=== PATIENT | female | born 1945 | race Caucasian/White ===

== ENCOUNTER 2022-05-25 18:27 | Inpatient (IN) ==
[2022-05-25] MEDS ORDERED: ONDANSETRON 4 MG/2 ML VIAL IV STA (19:26)
[2022-05-25] MEDS ORDERED: ALBUTEROL/IPRATROPIUM 3 ML NEB RESP TX STA (19:26)
[2022-05-25] MEDS ORDERED: methylPREDNISolone SOD SUC 125 MG/2 ML VIAL IV STA (19:26)
[2022-05-25] MEDS ORDERED: ALBUTEROL NEB SOLN 5 MG/ML 20 ML/BOTTLE CONT NEB SCH (19:30)
[2022-05-25] MEDS ORDERED: ALBUTEROL 2.5 MG/3 ML NEB RESP TX ONE (19:39)
[2022-05-25 20:01] LABS: Basophils # 0.1 10*3/uL (0.0-0.2); Basophils % 0.3 % (0.0-0.8); Eosinophils % 0.3 % (0.00-10.9); Hematocrit 27.2 VOL% (35.7-47.0); Hemoglobin 7.9 GM/DL (12.0-16.0); Immature Granulocytes % 0.3 %; Immature Granulocytes Absolute 0.04 #; Lymphocytes % 6.5 % (21.3-54.2); Mean Corpuscular Volume 80.5 FL (87-102); Mean Platelet Volume 9.7 FL (9.6-12.0); Monocytes % 6.5 % (1.7-12.7); Neutrophils % 86.1 % (38.7-73.9); Platelet Count 341 T/CUMM (130-400); Red Blood Count 3.38 MC/CUMM (3.8-5.5); Red Cell Distribution Width 14.7 % (9.3-17.3); White Blood Count 15.6 T/CUMM (4-12)
[2022-05-25 20:07] LABS: Arterial Base Excess iSTAT 6 MMOL/L (-2.5-2.5); Arterial Bicarbonate iSTAT 32.2 MMOL/L (20-26); Arterial O2 Saturation iSTAT 91 % (95-100); Arterial PCO2 iSTAT 54 MM HG (35-48); Arterial PO2 iSTAT 63 MM HG (80-95); Arterial Total CO2 iSTAT 34 MMO/L (23-27)
[2022-05-25 20:14] LABS: Albumin 3.5 G/DL (3.4-5.0); Bilirubin,Total 0.4 MG/DL (0.20-1.00); Calcium 9.3 MG/DL (8.5-10.1); Osmolality,Calculated 274.7 MOS/KG (273-304); Potassium 3.8 MMOL/L (3.5-5.1); Total Protein 6.5 G/DL (6.4-8.2)
[2022-05-25] MEDS ORDERED: MORPHINE 2 MG/1 ML SYRINGE IV PRN (22:20)
[2022-05-25] MEDS ORDERED: ONDANSETRON 4 MG/2 ML VIAL IV PRN (22:20)
[2022-05-25] MEDS: DOCUSATE SODIUM 100 MG CAPSULE PO SCH (22:40)
[2022-05-25] MEDS: SODIUM CHLORIDE 0.9% 1,000 ML IV SCH (22:42)
[2022-05-26] MEDS: ALBUTEROL/IPRATROPIUM 3 ML NEB RESP TX SCH ×7 (00:27→23:48)
[2022-05-26 05:16] LABS: Basophils % 0.1 % (0.0-0.8); Hemoglobin 7.4 GM/DL (12.0-16.0); Immature Granulocytes % 0.6 %; Immature Granulocytes Absolute 0.11 #; Lymphocytes # 0.2 10*3/uL (1.4-4.0); Lymphocytes % 0.8 % (21.3-54.2); Mean Corpuscular HGB Conc 28.5 GM/DL (32-36); Mean Corpuscular Volume 80.5 FL (87-102); Mean Platelet Volume 9.8 FL (9.6-12.0); Monocytes # 0.2 10*3/uL (0.11-0.8); Monocytes % 0.8 % (1.7-12.7); Neutrophils % 97.7 % (38.7-73.9); Platelet Count 307 T/CUMM (130-400); Red Blood Count 3.23 MC/CUMM (3.8-5.5); Red Cell Distribution Width 14.9 % (9.3-17.3); White Blood Count 18.2 T/CUMM (4-12)
[2022-05-26] MEDS: methylPREDNISolone SOD SUC 40 MG/1 ML VIAL IV SCH ×3 (05:23→20:07)
[2022-05-26 05:42] LABS: Alanine Aminotransferase 26 U/L (13-56); Albumin 3.2 G/DL (3.4-5.0); Alkaline Phosphatase 92 U/L (45-117); Aspartate Amino Transferase 16 U/L (0-37); Bilirubin,Total < 0.39 MG/DL (0.20-1.00); Blood Urea Nitrogen 14 MG/DL (7-18); Calcium 9.2 MG/DL (8.5-10.1); Carbon Dioxide 32 MMOL/L (21-32); Chloride 104 MMOL/L (98-107); Glucose 238 MG/DL (74-106); Osmolality,Calculated 291.1 MOS/KG (273-304); Sodium 142 MMOL/L (136-145); Total Protein 6.4 G/DL (6.4-8.2)
[2022-05-26 05:49] LABS: Total Cells Counted 100
[2022-05-26 05:50] LABS: Platelet Estimate Increased
[2022-05-26] MEDS ORDERED: ENOXAPARIN 40 MG/0.4 ML SYRINGE SUBCUT SCH (09:00)
[2022-05-26] MEDS: PANTOPRAZOLE 40 MG TABLET PO SCH (09:09)
[2022-05-26] MEDS: DOCUSATE SODIUM 100 MG CAPSULE PO SCH ×2 (09:09→20:04)
[2022-05-26] MEDS: SODIUM CHLORIDE 0.9% 1,000 ML IV SCH (12:25)
[2022-05-26] MEDS ORDERED: SODIUM CHLORIDE 0.9% 1,000 ML IV PRN (16:39)
[2022-05-26] MEDS: INSULIN REGULAR 100 UNIT/ML SUBCUT SCH (17:00)
[2022-05-26] MEDS: SERTRALINE 25 MG TABLET PO SCH (17:10)
[2022-05-26] MEDS: FAMOTIDINE 20 MG TABLET PO SCH (17:10)
[2022-05-26] MEDS: MONTELUKAST 10 MG TABLET PO SCH (17:10)
[2022-05-26] MEDS: NYSTATIN 500,000 UNIT/5 ML UDCUP SWISH/SWAL SCH ×2 (17:10→20:04)
[2022-05-26] MEDS: AZITHROMYCIN INJ 500 MG in SODIUM CHLORIDE 0.9% 250 ML IV SCH (17:10)
[2022-05-26] MEDS ORDERED: FUROSEMIDE 20 MG/2 ML VIAL IV ONE (19:22)
[2022-05-26] MEDS: BUDESONIDE 0.25 MG/2 ML NEB RESP TX SCH (19:40)
[2022-05-26] MEDS: ALPRAZolam 0.25 MG TABLET PO SCH (20:04)
[2022-05-26] MEDS ORDERED: APIXABAN 2.5 MG TABLET PO SCH (21:00)
[2022-05-26] MEDS: ACETAMINOPHEN 325 MG TABLET PO PRN (22:30)
[2022-05-27] MEDS: SODIUM CHLORIDE 0.9% 1,000 ML IV SCH ×3 (01:04→15:19)
[2022-05-27] MEDS: ALBUTEROL/IPRATROPIUM 3 ML NEB RESP TX SCH ×6 (04:00→23:00)
[2022-05-27 05:22] LABS: Basophils % 0.1 % (0.0-0.8); Hematocrit 32.5 VOL% (35.7-47.0); Hemoglobin 9.8 GM/DL (12.0-16.0); Immature Granulocytes % 0.8 %; Immature Granulocytes Absolute 0.15 #; Lymphocytes # 0.7 10*3/uL (1.4-4.0); Lymphocytes % 3.6 % (21.3-54.2); Mean Corpuscular HGB Conc 30.2 GM/DL (32-36); Mean Corpuscular Volume 80.6 FL (87-102); Mean Platelet Volume 9.7 FL (9.6-12.0); Monocytes # 1.1 10*3/uL (0.11-0.8); Monocytes % 5.7 % (1.7-12.7); Neutrophils % 89.8 % (38.7-73.9); Platelet Count 275 T/CUMM (130-400); Red Blood Count 4.03 MC/CUMM (3.8-5.5); Red Cell Distribution Width 15.5 % (9.3-17.3); White Blood Count 19.1 T/CUMM (4-12)
[2022-05-27 05:41] LABS: Calcium 9.2 MG/DL (8.5-10.1); Osmolality,Calculated 282.3 MOS/KG (273-304); Potassium 4.1 MMOL/L (3.5-5.1)
[2022-05-27] MEDS: methylPREDNISolone SOD SUC 40 MG/1 ML VIAL IV SCH ×3 (05:46→20:21)
[2022-05-27 05:51] LABS: Hypochromia Slight; Lymphocytes 3 % (20-55); Microcytosis 1+; Total Cells Counted 100
[2022-05-27 05:52] LABS: Ovalocytes Few; Platelet Estimate Normal
[2022-05-27] MEDS: INSULIN REGULAR 100 UNIT/ML SUBCUT SCH ×2 (07:33→16:26)
[2022-05-27] MEDS: BUDESONIDE 0.25 MG/2 ML NEB RESP TX SCH ×2 (07:55→19:00)
[2022-05-27] MEDS: ASPIRIN EC 81 MG TABLET PO SCH (09:21)
[2022-05-27] MEDS: ALPRAZolam 0.25 MG TABLET PO SCH ×3 (09:21→20:21)
[2022-05-27] MEDS: PANTOPRAZOLE 40 MG TABLET PO SCH (09:21)
[2022-05-27] MEDS: DOCUSATE SODIUM 100 MG CAPSULE PO SCH ×2 (09:21→20:21)
[2022-05-27] MEDS: SERTRALINE 25 MG TABLET PO SCH (09:21)
[2022-05-27] MEDS: MONTELUKAST 10 MG TABLET PO SCH (09:22)
[2022-05-27] MEDS: NYSTATIN 500,000 UNIT/5 ML UDCUP SWISH/SWAL SCH ×4 (09:22→20:23)
[2022-05-27] MEDS: FAMOTIDINE 20 MG TABLET PO SCH (09:22)
[2022-05-27] MEDS: ACETAMINOPHEN 325 MG TABLET PO PRN ×2 (09:27→17:26)
[2022-05-27] MEDS: AZITHROMYCIN INJ 500 MG in SODIUM CHLORIDE 0.9% 250 ML IV SCH (17:17)
[2022-05-28] MEDS: ALBUTEROL/IPRATROPIUM 3 ML NEB RESP TX SCH ×6 (02:28→23:35)
[2022-05-28] MEDS: methylPREDNISolone SOD SUC 40 MG/1 ML VIAL IV SCH ×3 (05:45→21:12)
[2022-05-28] MEDS: SODIUM CHLORIDE 0.9% 1,000 ML IV SCH ×2 (06:50→21:49)
[2022-05-28] MEDS: BUDESONIDE 0.25 MG/2 ML NEB RESP TX SCH ×2 (07:34→19:05)
[2022-05-28] MEDS: INSULIN REGULAR 100 UNIT/ML SUBCUT SCH ×2 (07:55→15:52)
[2022-05-28] MEDS: MONTELUKAST 10 MG TABLET PO SCH (08:38)
[2022-05-28] MEDS: PANTOPRAZOLE 40 MG TABLET PO SCH (08:38)
[2022-05-28] MEDS: ALPRAZolam 0.25 MG TABLET PO SCH ×3 (08:38→21:11)
[2022-05-28] MEDS: DOCUSATE SODIUM 100 MG/10 ML UDCUP PO SCH (08:38)
[2022-05-28] MEDS: ASPIRIN EC 81 MG TABLET PO SCH (08:38)
[2022-05-28] MEDS: SERTRALINE 25 MG TABLET PO SCH (08:38)
[2022-05-28] MEDS: FAMOTIDINE 20 MG TABLET PO SCH (08:38)
[2022-05-28] MEDS: DOCUSATE SODIUM 100 MG CAPSULE PO SCH ×2 (08:38→21:11)
[2022-05-28] MEDS: NYSTATIN 500,000 UNIT/5 ML UDCUP SWISH/SWAL SCH ×4 (08:39→21:11)
[2022-05-28] MEDS: AZITHROMYCIN INJ 500 MG in SODIUM CHLORIDE 0.9% 250 ML IV SCH (17:38)
[2022-05-29] MEDS: ACETAMINOPHEN 325 MG TABLET PO PRN (02:33)
[2022-05-29] MEDS: ALBUTEROL/IPRATROPIUM 3 ML NEB RESP TX SCH ×5 (03:00→20:06)
[2022-05-29] MEDS: methylPREDNISolone SOD SUC 40 MG/1 ML VIAL IV SCH ×3 (04:58→20:41)
[2022-05-29 07:10] LABS: Calcium 8.9 MG/DL (8.5-10.1); Osmolality,Calculated 281.3 MOS/KG (273-304); Potassium 3.8 MMOL/L (3.5-5.1)
[2022-05-29 07:18] LABS: Basophils % 0.1 % (0.0-0.8); Immature Granulocytes % 0.9 %; Immature Granulocytes Absolute 0.19 #; Lymphocytes # 0.8 10*3/uL (1.4-4.0); Lymphocytes % 3.7 % (21.3-54.2); Mean Corpuscular HGB Conc 29.7 GM/DL (32-36); Mean Corpuscular Volume 80.9 FL (87-102); Mean Platelet Volume 10.2 FL (9.6-12.0); Monocytes # 1.5 10*3/uL (0.11-0.8); Monocytes % 6.8 % (1.7-12.7); Neutrophils % 88.5 % (38.7-73.9); Platelet Count 292 T/CUMM (130-400); Red Blood Count 4.45 MC/CUMM (3.8-5.5); White Blood Count 21.3 T/CUMM (4-12)
[2022-05-29 07:19] LABS: Hemoglobin 10.7 GM/DL (12.0-16.0)
[2022-05-29] MEDS: BUDESONIDE 0.25 MG/2 ML NEB RESP TX SCH ×2 (07:20→20:06)
[2022-05-29 07:21] LABS: Lymphocytes 2 % (20-55); Platelet Estimate Normal; Total Cells Counted 100
[2022-05-29] MEDS: ALPRAZolam 0.25 MG TABLET PO SCH ×3 (08:11→20:35)
[2022-05-29] MEDS: MONTELUKAST 10 MG TABLET PO SCH (08:11)
[2022-05-29] MEDS: ASPIRIN EC 81 MG TABLET PO SCH (08:11)
[2022-05-29] MEDS: FAMOTIDINE 20 MG TABLET PO SCH (08:11)
[2022-05-29] MEDS: NYSTATIN 500,000 UNIT/5 ML UDCUP SWISH/SWAL SCH ×4 (08:12→20:35)
[2022-05-29] MEDS: PANTOPRAZOLE 40 MG TABLET PO SCH (08:12)
[2022-05-29] MEDS: SERTRALINE 25 MG TABLET PO SCH (08:12)
[2022-05-29] MEDS: DOCUSATE SODIUM 100 MG CAPSULE PO SCH ×2 (08:12→20:35)
[2022-05-29] MEDS: INSULIN REGULAR 100 UNIT/ML SUBCUT SCH ×2 (09:48→16:07)
[2022-05-29] MEDS: SODIUM CHLORIDE 0.9% 1,000 ML IV SCH (13:11)
[2022-05-29] MEDS: AZITHROMYCIN INJ 500 MG in SODIUM CHLORIDE 0.9% 250 ML IV SCH (17:44)
[2022-05-30] MEDS: ALBUTEROL/IPRATROPIUM 3 ML NEB RESP TX SCH ×7 (00:30→23:55)
[2022-05-30] MEDS: methylPREDNISolone SOD SUC 40 MG/1 ML VIAL IV SCH ×3 (05:00→20:48)
[2022-05-30] MEDS: SODIUM CHLORIDE 0.9% 1,000 ML IV SCH (05:09)
[2022-05-30] MEDS: ALPRAZolam 0.25 MG TABLET PO SCH ×3 (05:30→20:40)
[2022-05-30] MEDS: BUDESONIDE 0.25 MG/2 ML NEB RESP TX SCH ×2 (07:04→19:53)
[2022-05-30] MEDS: INSULIN REGULAR 100 UNIT/ML SUBCUT SCH ×2 (07:44→15:53)
[2022-05-30] MEDS: ASPIRIN EC 81 MG TABLET PO SCH (09:11)
[2022-05-30] MEDS: FAMOTIDINE 20 MG TABLET PO SCH (09:11)
[2022-05-30] MEDS: DOCUSATE SODIUM 100 MG CAPSULE PO SCH ×2 (09:11→20:40)
[2022-05-30] MEDS: SERTRALINE 25 MG TABLET PO SCH (09:11)
[2022-05-30] MEDS: NYSTATIN 500,000 UNIT/5 ML UDCUP SWISH/SWAL SCH ×4 (09:11→20:40)
[2022-05-30] MEDS: PANTOPRAZOLE 40 MG TABLET PO SCH (09:11)
[2022-05-30] MEDS: DOCUSATE SODIUM 100 MG/10 ML UDCUP PO SCH (09:11)
[2022-05-30] MEDS: MONTELUKAST 10 MG TABLET PO SCH (09:11)
[2022-05-30] MEDS: AZITHROMYCIN INJ 500 MG in SODIUM CHLORIDE 0.9% 250 ML IV SCH (17:39)
[2022-05-31] MEDS: ALBUTEROL/IPRATROPIUM 3 ML NEB RESP TX SCH ×6 (03:57→23:41)
[2022-05-31] MEDS: ALPRAZolam 0.25 MG TABLET PO SCH ×3 (05:30→20:31)
[2022-05-31] MEDS: methylPREDNISolone SOD SUC 40 MG/1 ML VIAL IV SCH ×3 (05:30→20:34)
[2022-05-31 06:41] LABS: Osmolality,Calculated 278.3 MOS/KG (273-304)
[2022-05-31] MEDS: INSULIN REGULAR 100 UNIT/ML SUBCUT SCH ×2 (07:13→16:54)
[2022-05-31 08:34] LABS: Basophils % 0.1 % (0.0-0.8); Eosinophils # 0.1 10*3/uL (0.0-0.87); Eosinophils % 0.4 % (0.00-10.9); Hematocrit 37.6 VOL% (35.7-47.0); Hemoglobin 11.1 GM/DL (12.0-16.0); Immature Granulocytes % 0.8 %; Immature Granulocytes Absolute 0.17 #; Lymphocytes # 0.5 10*3/uL (1.4-4.0); Lymphocytes % 2.1 % (21.3-54.2); Mean Corpuscular HGB Conc 29.5 GM/DL (32-36); Mean Corpuscular Volume 81.7 FL (87-102); Mean Platelet Volume 10.3 FL (9.6-12.0); Monocytes # 1.7 10*3/uL (0.11-0.8); Monocytes % 7.4 % (1.7-12.7); Neutrophils % 89.2 % (38.7-73.9); Platelet Count 310 T/CUMM (130-400); Red Cell Distribution Width 17.5 % (9.3-17.3); White Blood Count 22.4 T/CUMM (4-12)
[2022-05-31 08:37] LABS: Lymphocytes 2 % (20-55); Platelet Estimate Adequate; Total Cells Counted 100
[2022-05-31 08:38] LABS: Hypochromia Slight; Microcytosis Slight
[2022-05-31] MEDS: BUDESONIDE 0.25 MG/2 ML NEB RESP TX SCH ×2 (08:40→19:00)
[2022-05-31] MEDS: SERTRALINE 25 MG TABLET PO SCH (08:52)
[2022-05-31] MEDS: MONTELUKAST 10 MG TABLET PO SCH (08:52)
[2022-05-31] MEDS: DOCUSATE SODIUM 100 MG CAPSULE PO SCH ×2 (08:52→20:31)
[2022-05-31] MEDS: PANTOPRAZOLE 40 MG TABLET PO SCH (08:52)
[2022-05-31] MEDS: ASPIRIN EC 81 MG TABLET PO SCH (08:52)
[2022-05-31] MEDS: NYSTATIN 500,000 UNIT/5 ML UDCUP SWISH/SWAL SCH ×4 (08:52→20:31)
[2022-05-31] MEDS: FAMOTIDINE 20 MG TABLET PO SCH (08:52)
[2022-05-31] MEDS: AZITHROMYCIN INJ 500 MG in SODIUM CHLORIDE 0.9% 250 ML IV SCH (17:35)
[2022-05-31] MEDS: ACETAMINOPHEN 325 MG TABLET PO PRN (17:38)
[2022-06-01] MEDS: ALBUTEROL/IPRATROPIUM 3 ML NEB RESP TX SCH ×6 (03:40→23:00)
[2022-06-01] MEDS: ALPRAZolam 0.25 MG TABLET PO SCH ×3 (05:05→21:49)
[2022-06-01] MEDS: methylPREDNISolone SOD SUC 40 MG/1 ML VIAL IV SCH ×3 (05:05→21:51)
[2022-06-01 05:45] LABS: Calcium 9.4 MG/DL (8.5-10.1); Osmolality,Calculated 283.1 MOS/KG (273-304); Potassium 4.6 MMOL/L (3.5-5.1)
[2022-06-01 06:00] LABS: Basophils % 0.1 % (0.0-0.8); Eosinophils % 0.1 % (0.00-10.9); Hemoglobin 10.4 GM/DL (12.0-16.0); Immature Granulocytes % 0.6 %; Immature Granulocytes Absolute 0.09 #; Lymphocytes # 0.7 10*3/uL (1.4-4.0); Lymphocytes % 4.8 % (21.3-54.2); Mean Corpuscular HGB Conc 29.7 GM/DL (32-36); Mean Corpuscular Volume 82.9 FL (87-102); Mean Platelet Volume 10.6 FL (9.6-12.0); Monocytes # 1.2 10*3/uL (0.11-0.8); Monocytes % 7.5 % (1.7-12.7); Neutrophils % 86.9 % (38.7-73.9); Platelet Count 282 T/CUMM (130-400); Red Blood Count 4.22 MC/CUMM (3.8-5.5); Red Cell Distribution Width 17.6 % (9.3-17.3); White Blood Count 15.5 T/CUMM (4-12)
[2022-06-01 06:09] LABS: Eosinophils 1 % (0-10); Lymphocytes 3 % (20-55); Total Cells Counted 100
[2022-06-01 06:10] LABS: Hypochromia Slight; Microcytosis 1+; Ovalocytes Few
[2022-06-01] MEDS: BUDESONIDE 0.25 MG/2 ML NEB RESP TX SCH ×2 (07:03→19:11)
[2022-06-01] MEDS: SERTRALINE 25 MG TABLET PO SCH (09:23)
[2022-06-01] MEDS: PANTOPRAZOLE 40 MG TABLET PO SCH (09:23)
[2022-06-01] MEDS: ASPIRIN EC 81 MG TABLET PO SCH (09:23)
[2022-06-01] MEDS: FAMOTIDINE 20 MG TABLET PO SCH (09:24)
[2022-06-01] MEDS: NYSTATIN 500,000 UNIT/5 ML UDCUP SWISH/SWAL SCH ×4 (09:24→21:49)
[2022-06-01] MEDS: MONTELUKAST 10 MG TABLET PO SCH (09:24)
[2022-06-01] MEDS: DOCUSATE SODIUM 100 MG CAPSULE PO SCH ×2 (09:24→21:49)
[2022-06-01] MEDS: INSULIN REGULAR 100 UNIT/ML SUBCUT SCH ×2 (09:26→16:53)
[2022-06-01] MEDS: DOCUSATE SODIUM 100 MG/10 ML UDCUP PO SCH (09:26)
[2022-06-02] MEDS: ALBUTEROL/IPRATROPIUM 3 ML NEB RESP TX SCH ×6 (03:06→23:35)
[2022-06-02 05:12] LABS: Calcium 9.2 MG/DL (8.5-10.1); Osmolality,Calculated 282.3 MOS/KG (273-304); Potassium 4.1 MMOL/L (3.5-5.1)
[2022-06-02 05:15] LABS: Basophils % 0.1 % (0.0-0.8); Eosinophils % 0.1 % (0.00-10.9); Hemoglobin 9.9 GM/DL (12.0-16.0); Immature Granulocytes % 0.7 %; Lymphocytes # 0.5 10*3/uL (1.4-4.0); Lymphocytes % 3.3 % (21.3-54.2); Mean Corpuscular HGB Conc 28.9 GM/DL (32-36); Mean Corpuscular Volume 83.6 FL (87-102); Mean Platelet Volume 10.4 FL (9.6-12.0); Monocytes # 0.8 10*3/uL (0.11-0.8); Monocytes % 5.4 % (1.7-12.7); Neutrophils % 90.4 % (38.7-73.9); Platelet Count 263 T/CUMM (130-400); Red Blood Count 4.09 MC/CUMM (3.8-5.5); Red Cell Distribution Width 18.1 % (9.3-17.3); White Blood Count 15.1 T/CUMM (4-12)
[2022-06-02 05:17] LABS: Hematocrit 34.2 VOL% (35.7-47.0)
[2022-06-02] MEDS: ALPRAZolam 0.25 MG TABLET PO SCH ×3 (05:17→20:59)
[2022-06-02] MEDS: methylPREDNISolone SOD SUC 40 MG/1 ML VIAL IV SCH ×3 (05:17→21:04)
[2022-06-02 05:40] LABS: Hypochromia Slight; Lymphocytes 6 % (20-55); Microcytosis Slight; Platelet Estimate Adequate; Total Cells Counted 100
[2022-06-02] MEDS: BUDESONIDE 0.25 MG/2 ML NEB RESP TX SCH ×2 (07:30→19:15)
[2022-06-02] MEDS: INSULIN REGULAR 100 UNIT/ML SUBCUT SCH ×2 (08:58→16:47)
[2022-06-02] MEDS: FAMOTIDINE 20 MG TABLET PO SCH (09:52)
[2022-06-02] MEDS: ASPIRIN EC 81 MG TABLET PO SCH (09:52)
[2022-06-02] MEDS: SERTRALINE 25 MG TABLET PO SCH (09:52)
[2022-06-02] MEDS: MONTELUKAST 10 MG TABLET PO SCH (09:53)
[2022-06-02] MEDS: DOCUSATE SODIUM 100 MG CAPSULE PO SCH ×2 (09:53→20:59)
[2022-06-02] MEDS: NYSTATIN 500,000 UNIT/5 ML UDCUP SWISH/SWAL SCH ×4 (09:53→20:59)
[2022-06-02] MEDS: PANTOPRAZOLE 40 MG TABLET PO SCH (09:53)
[2022-06-02] MEDS: FERROUS SULFATE 325 MG TABLET PO SCH (20:59)
[2022-06-03] MEDS: ALBUTEROL/IPRATROPIUM 3 ML NEB RESP TX SCH ×4 (03:55→14:11)
[2022-06-03] MEDS: ALPRAZolam 0.25 MG TABLET PO SCH ×2 (06:06→13:26)
[2022-06-03] MEDS: methylPREDNISolone SOD SUC 40 MG/1 ML VIAL IV SCH ×2 (06:06→13:26)
[2022-06-03] MEDS: INSULIN REGULAR 100 UNIT/ML SUBCUT SCH (07:30)
[2022-06-03] MEDS: BUDESONIDE 0.25 MG/2 ML NEB RESP TX SCH (07:52)
[2022-06-03] MEDS: DOCUSATE SODIUM 100 MG/10 ML UDCUP PO SCH (08:23)
[2022-06-03] MEDS: MONTELUKAST 10 MG TABLET PO SCH (08:23)
[2022-06-03] MEDS: SERTRALINE 25 MG TABLET PO SCH (08:23)
[2022-06-03] MEDS: PANTOPRAZOLE 40 MG TABLET PO SCH (08:23)
[2022-06-03] MEDS: FAMOTIDINE 20 MG TABLET PO SCH (08:23)
[2022-06-03] MEDS: ASPIRIN EC 81 MG TABLET PO SCH (08:23)
[2022-06-03] MEDS: DOCUSATE SODIUM 100 MG CAPSULE PO SCH (08:23)
[2022-06-03] MEDS: FERROUS SULFATE 325 MG TABLET PO SCH (08:24)
[2022-06-03 12:05] VITALS: BP 147/85
== END 2022-06-03 15:26 | DRG 191 ==
LOC: N.EDINP 18:27 → N.ED 18:27 → N.3E 21:40
PROVIDERS: ADMIT Internal Medicine; ATTEND Internal Medicine

== ENCOUNTER 2022-07-05 10:58 | Inpatient (IN) ==
[2022-07-05] MEDS ORDERED: SODIUM CHLORIDE 0.9% 500 ML IV STA (11:18)
[2022-07-05] MEDS ORDERED: methylPREDNISolone SOD SUC 125 MG/2 ML VIAL IV STA (11:18)
[2022-07-05] MEDS ORDERED: ALBUTEROL NEB SOLN 5 MG/ML 20 ML/BOTTLE CONT NEB SCH (11:30)
[2022-07-05 11:35] LABS: Basophils % 0.4 % (0.0-0.8); Eosinophils % 0.3 % (0.00-10.9); Hematocrit 35.7 VOL% (35.7-47.0); Hemoglobin 10.6 GM/DL (12.0-16.0); Immature Granulocytes % 0.5 %; Immature Granulocytes Absolute 0.05 #; Lymphocytes # 0.6 10*3/uL (1.4-4.0); Lymphocytes % 5.7 % (21.3-54.2); Mean Corpuscular HGB Conc 29.7 GM/DL (32-36); Mean Corpuscular Volume 82.1 FL (87-102); Mean Platelet Volume 9.6 FL (9.6-12.0); Monocytes # 0.3 10*3/uL (0.11-0.8); Monocytes % 2.7 % (1.7-12.7); Neutrophils % 90.4 % (38.7-73.9); Platelet Count 256 T/CUMM (130-400); Red Blood Count 4.35 MC/CUMM (3.8-5.5); Red Cell Distribution Width 19.7 % (9.3-17.3); White Blood Count 9.8 T/CUMM (4-12)
[2022-07-05] MEDS ORDERED: ALBUTEROL 2.5 MG/3 ML NEB RESP TX ONE (11:35)
[2022-07-05 11:46] LABS: PT Patient Result 10.7 SECS (10.1-12.1); Partial Thromboplastin Time 28.7 SECS (23.7-32.9)
[2022-07-05 12:07] LABS: Albumin 3.8 G/DL (3.4-5.0); Bilirubin,Total 0.5 MG/DL (0.20-1.00); Calcium 9.6 MG/DL (8.5-10.1); Osmolality,Calculated 280.4 MOS/KG (273-304); Potassium 3.9 MMOL/L (3.5-5.1); Total Protein 6.4 G/DL (6.4-8.2)
[2022-07-05 12:21] LABS: Arterial Base Excess iSTAT 6 MMOL/L (-2.5-2.5); Arterial O2 Saturation iSTAT 54 % (95-100); Arterial PCO2 iSTAT 53 MM HG (35-48); Arterial PO2 iSTAT 29 MM HG (80-95); Arterial Total CO2 iSTAT 34 MMO/L (23-27); Arterial pH iSTAT 7.388 (7.35-7.45)
[2022-07-05] MEDS ORDERED: LORazepam 2 MG/1 ML VIAL IV STA (12:53)
[2022-07-05] MEDS ORDERED: ONDANSETRON 4 MG/2 ML VIAL IV PRN (12:53)
[2022-07-05] MEDS ORDERED: ACETAMINOPHEN 325 MG TABLET PO PRN (12:53)
[2022-07-05] MEDS ORDERED: ALBUTEROL 2.5 MG/3 ML NEB RESP TX SCH (14:00)
[2022-07-05] MEDS: SODIUM CHLORIDE 0.9% 1,000 ML IV SCH (14:49)
[2022-07-05] MEDS: methylPREDNISolone SOD SUC 125 MG/2 ML VIAL IV SCH ×3 (14:49→23:31)
[2022-07-05] MEDS: ALBUTEROL 2.5 MG/3 ML NEB RESP TX SCH ×2 (15:10→19:23)
[2022-07-05] MEDS ORDERED: ALBUTEROL 2.5 MG/3 ML NEB RESP TX PRN (19:16)
[2022-07-05] MEDS: BUDESONIDE 0.25 MG/2 ML NEB RESP TX SCH (19:23)
[2022-07-05] MEDS: FERROUS SULFATE 325 MG TABLET PO SCH (21:24)
[2022-07-05] MEDS: DOCUSATE SODIUM 100 MG CAPSULE PO SCH ×2 (21:24→21:26)
[2022-07-05] MEDS: NYSTATIN 500,000 UNIT/5 ML UDCUP SWISH/SWAL SCH (21:24)
[2022-07-05] MEDS: ZINC OXIDE PASTE 113 GM TUBE TOP SCH (21:26)
[2022-07-05] MEDS ORDERED: ALBUTEROL/IPRATROPIUM 3 ML NEB RESP TX ONE (23:57)
[2022-07-06] MEDS: ALBUTEROL/IPRATROPIUM 3 ML NEB RESP TX SCH ×4 (00:01→17:47)
[2022-07-06] MEDS: methylPREDNISolone SOD SUC 125 MG/2 ML VIAL IV SCH (05:32)
[2022-07-06 06:24] LABS: Osmolality,Calculated 280.5 MOS/KG (273-304); Potassium 4.4 MMOL/L (3.5-5.1)
[2022-07-06] MEDS: BUDESONIDE 0.25 MG/2 ML NEB RESP TX SCH ×2 (07:18→19:23)
[2022-07-06] MEDS: DOCUSATE SODIUM 100 MG CAPSULE PO SCH ×4 (08:07→20:58)
[2022-07-06] MEDS: NYSTATIN 500,000 UNIT/5 ML UDCUP SWISH/SWAL SCH ×4 (08:32→20:57)
[2022-07-06] MEDS: SERTRALINE 25 MG TABLET PO SCH (08:32)
[2022-07-06] MEDS: MONTELUKAST 10 MG TABLET PO SCH (08:32)
[2022-07-06] MEDS: FERROUS SULFATE 325 MG TABLET PO SCH ×2 (08:32→20:57)
[2022-07-06] MEDS: PANTOPRAZOLE 40 MG TABLET PO SCH (08:32)
[2022-07-06] MEDS: ASPIRIN EC 81 MG TABLET PO SCH (08:32)
[2022-07-06] MEDS: LIDOCAINE 5% PATCH TRANSDERM SCH (08:37)
[2022-07-06] MEDS: ALPRAZolam 0.25 MG TABLET PO PRN (08:45)
[2022-07-06] MEDS: DILTIAZEM 60 MG TABLET PO SCH ×2 (08:45→20:56)
[2022-07-06] MEDS: FAMOTIDINE 20 MG TABLET PO SCH (08:45)
[2022-07-06] MEDS: SODIUM CHLORIDE 0.9% 1,000 ML IV SCH (09:01)
[2022-07-06] MEDS: ZINC OXIDE PASTE 113 GM TUBE TOP SCH ×2 (09:01→20:58)
[2022-07-06] MEDS: methylPREDNISolone SOD SUC 40 MG/1 ML VIAL IV SCH ×2 (12:08→17:42)
[2022-07-07] MEDS: methylPREDNISolone SOD SUC 40 MG/1 ML VIAL IV SCH ×4 (00:24→17:32)
[2022-07-07] MEDS: ALBUTEROL/IPRATROPIUM 3 ML NEB RESP TX SCH ×4 (00:33→19:45)
[2022-07-07 06:38] LABS: Calcium 9.1 MG/DL (8.5-10.1); Osmolality,Calculated 281.5 MOS/KG (273-304); Potassium 4.4 MMOL/L (3.5-5.1)
[2022-07-07] MEDS: BUDESONIDE 0.25 MG/2 ML NEB RESP TX SCH ×2 (06:54→19:45)
[2022-07-07] MEDS: NYSTATIN 500,000 UNIT/5 ML UDCUP SWISH/SWAL SCH ×4 (08:34→20:42)
[2022-07-07] MEDS: ZINC OXIDE PASTE 113 GM TUBE TOP SCH ×2 (08:34→20:44)
[2022-07-07] MEDS: SERTRALINE 25 MG TABLET PO SCH (08:34)
[2022-07-07] MEDS: DOCUSATE SODIUM 100 MG CAPSULE PO SCH ×2 (08:35→20:42)
[2022-07-07] MEDS: MONTELUKAST 10 MG TABLET PO SCH (08:35)
[2022-07-07] MEDS: ALPRAZolam 0.25 MG TABLET PO PRN ×2 (08:35→20:46)
[2022-07-07] MEDS: ASPIRIN EC 81 MG TABLET PO SCH (08:35)
[2022-07-07] MEDS: FAMOTIDINE 20 MG TABLET PO SCH (08:35)
[2022-07-07] MEDS: PANTOPRAZOLE 40 MG TABLET PO SCH (08:35)
[2022-07-07] MEDS: DILTIAZEM 60 MG TABLET PO SCH ×2 (08:35→20:42)
[2022-07-07] MEDS: FERROUS SULFATE 325 MG TABLET PO SCH ×2 (08:35→20:42)
[2022-07-07] MEDS: LIDOCAINE 5% PATCH TRANSDERM SCH (10:15)
[2022-07-07] MEDS: SODIUM CHLORIDE 0.9% 1,000 ML IV SCH (11:52)
[2022-07-08] MEDS: methylPREDNISolone SOD SUC 40 MG/1 ML VIAL IV SCH ×5 (00:20→23:31)
[2022-07-08] MEDS: ALBUTEROL/IPRATROPIUM 3 ML NEB RESP TX SCH ×4 (01:58→19:06)
[2022-07-08] MEDS: BUDESONIDE 0.25 MG/2 ML NEB RESP TX SCH ×2 (07:04→19:06)
[2022-07-08] MEDS: MONTELUKAST 10 MG TABLET PO SCH (08:15)
[2022-07-08] MEDS: FERROUS SULFATE 325 MG TABLET PO SCH ×2 (08:15→20:51)
[2022-07-08] MEDS: DOCUSATE SODIUM 100 MG CAPSULE PO SCH ×2 (08:15→20:51)
[2022-07-08] MEDS: LIDOCAINE 5% PATCH TRANSDERM SCH ×2 (08:15→08:54)
[2022-07-08] MEDS: SERTRALINE 25 MG TABLET PO SCH (08:16)
[2022-07-08] MEDS: FAMOTIDINE 20 MG TABLET PO SCH (08:16)
[2022-07-08] MEDS: DILTIAZEM 60 MG TABLET PO SCH ×2 (08:16→20:51)
[2022-07-08] MEDS: ASPIRIN EC 81 MG TABLET PO SCH (08:16)
[2022-07-08] MEDS: ALPRAZolam 0.25 MG TABLET PO PRN ×2 (08:16→21:45)
[2022-07-08] MEDS: NYSTATIN 500,000 UNIT/5 ML UDCUP SWISH/SWAL SCH ×4 (08:16→20:51)
[2022-07-08] MEDS: PANTOPRAZOLE 40 MG TABLET PO SCH (08:16)
[2022-07-08] MEDS: ZINC OXIDE PASTE 113 GM TUBE TOP SCH ×2 (08:54→20:54)
[2022-07-08] MEDS ORDERED: TUBERCULIN SKIN TEST 0.1 ML SYRINGE INTRADERM ONE (10:00)
[2022-07-08] MEDS: SODIUM CHLORIDE 0.9% 1,000 ML IV SCH (14:48)
[2022-07-09] MEDS: ALBUTEROL/IPRATROPIUM 3 ML NEB RESP TX SCH ×2 (00:03→07:12)
[2022-07-09 03:20] LABS: Arterial Base Excess iSTAT 4 MMOL/L (-2.5-2.5); Arterial Bicarbonate iSTAT 31.8 MMOL/L (20-26); Arterial O2 Saturation iSTAT 94 % (95-100); Arterial PCO2 iSTAT 62 MM HG (35-48); Arterial PO2 iSTAT 80 MM HG (80-95); Arterial Total CO2 iSTAT 34 MMO/L (23-27); Arterial pH iSTAT 7.319 (7.35-7.45)
[2022-07-09] MEDS: methylPREDNISolone SOD SUC 40 MG/1 ML VIAL IV SCH ×2 (05:05→11:42)
[2022-07-09] MEDS: BUDESONIDE 0.25 MG/2 ML NEB RESP TX SCH (07:12)
[2022-07-09] MEDS: LIDOCAINE 5% PATCH TRANSDERM SCH (08:51)
[2022-07-09] MEDS: FAMOTIDINE 20 MG TABLET PO SCH (08:52)
[2022-07-09] MEDS: PANTOPRAZOLE 40 MG TABLET PO SCH (08:52)
[2022-07-09] MEDS: MONTELUKAST 10 MG TABLET PO SCH (08:52)
[2022-07-09] MEDS: DOCUSATE SODIUM 100 MG CAPSULE PO SCH (08:52)
[2022-07-09] MEDS: DILTIAZEM 60 MG TABLET PO SCH (08:52)
[2022-07-09] MEDS: SERTRALINE 25 MG TABLET PO SCH (08:52)
[2022-07-09] MEDS: FERROUS SULFATE 325 MG TABLET PO SCH ×2 (08:52→08:54)
[2022-07-09] MEDS: ALPRAZolam 0.25 MG TABLET PO PRN (08:52)
[2022-07-09] MEDS: ASPIRIN EC 81 MG TABLET PO SCH (08:52)
[2022-07-09] MEDS: NYSTATIN 500,000 UNIT/5 ML UDCUP SWISH/SWAL SCH (08:53)
[2022-07-09] MEDS: ZINC OXIDE PASTE 113 GM TUBE TOP SCH (08:56)
[2022-07-09] MEDS: SODIUM CHLORIDE 0.9% 1,000 ML IV SCH (12:00)
[2022-07-09 12:07] VITALS: BP 130/56
== END 2022-07-09 12:05 | DRG 191 ==
LOC: N.ED 10:58 → N.EDINP 10:58 → N.3E 14:20
PROVIDERS: ADMIT Internal Medicine; ATTEND Internal Medicine

== ENCOUNTER 2022-08-14 00:46 | Inpatient (IN) ==
[2022-08-14] MEDS ORDERED: methylPREDNISolone SOD SUC 125 MG/2 ML VIAL IV STA (01:19)
[2022-08-14] MEDS ORDERED: SODIUM CHLORIDE 0.9% 500 ML IV STA (01:19)
[2022-08-14] MEDS ORDERED: ALBUTEROL/IPRATROPIUM 3 ML NEB RESP TX STA (01:19)
[2022-08-14 01:59] LABS: Basophils % 0.2 % (0.0-0.8); Eosinophils % 0.2 % (0.00-10.9); Hematocrit 28.9 VOL% (35.7-47.0); Hemoglobin 8.4 GM/DL (12.0-16.0); Immature Granulocytes Absolute 0.16 #; Lymphocytes # 1.1 10*3/uL (1.4-4.0); Mean Corpuscular HGB Conc 29.1 GM/DL (32-36); Mean Corpuscular Volume 85.3 FL (87-102); Mean Platelet Volume 9.4 FL (9.6-12.0); Monocytes # 1.1 10*3/uL (0.11-0.8); Monocytes % 6.6 % (1.7-12.7); Platelet Count 237 T/CUMM (130-400); Red Blood Count 3.39 MC/CUMM (3.8-5.5); White Blood Count 16.22 T/CUMM (4-12)
[2022-08-14 02:12] LABS: Alanine Aminotransferase 30 U/L (13-56); Albumin 3.1 G/DL (3.4-5.0); Alkaline Phosphatase 80 U/L (45-117); Aspartate Amino Transferase 21 U/L (0-37); Blood Urea Nitrogen 22 MG/DL (7-18); Calcium 9.1 MG/DL (8.5-10.1); Carbon Dioxide 38 MMOL/L (21-32); Chloride 101 MMOL/L (98-107); Glucose 117 MG/DL (74-106); Osmolality,Calculated 286.1 MOS/KG (273-304); Potassium 4.2 MMOL/L (3.5-5.1); Sodium 142 MMOL/L (136-145); Total Protein 5.7 G/DL (6.4-8.2)
[2022-08-14 02:16] LABS: PT Patient Result 10.6 SECS (10.1-12.1)
[2022-08-14] MEDS ORDERED: DILTIAZEM 50 MG/10 ML VIAL IV STA (02:19)
[2022-08-14] MEDS ORDERED: SODIUM CHLORIDE 0.9% 1,000 ML IV STA (02:56)
[2022-08-14] MEDS ORDERED: PIPERACILLIN/TAZOBACTAM 3,375 MG in SODIUM CHLORIDE 0.9% 100 ML IV STA (02:56)
[2022-08-14] MEDS ORDERED: ALBUTEROL 2.5 MG/3 ML NEB RESP TX PRN (03:35)
[2022-08-14] MEDS ORDERED: SODIUM CHLORIDE 0.9% 1,000 ML IV SCH (04:30)
[2022-08-14] MEDS ORDERED: VANCOMYCIN IV SCH (04:30)
[2022-08-14] MEDS ORDERED: methylPREDNISolone SOD SUC 125 MG/2 ML VIAL IV SCH (05:30)
[2022-08-14] MEDS: DILTIAZEM INJ 100 MG in SODIUM CHLORIDE 0.9% 100 ML IV SCH ×2 (05:32→13:57)
[2022-08-14] MEDS: VANCOMYCIN INJ 500 MG in SODIUM CHLORIDE 0.9% 100 ML IV SCH ×2 (05:33→23:21)
[2022-08-14] MEDS: ALBUTEROL/IPRATROPIUM 3 ML NEB RESP TX SCH ×3 (07:38→19:16)
[2022-08-14] MEDS ORDERED: LACTATED RINGERS 1,000 ML IV ONE (08:20)
[2022-08-14 09:48] LABS: Arterial Base Excess iSTAT 7 MMOL/L (-2.5-2.5); Arterial Bicarbonate iSTAT 32.1 MMOL/L (20-26); Arterial O2 Saturation iSTAT 93 % (95-100); Arterial PCO2 iSTAT 50 MM HG (35-48); Arterial PO2 iSTAT 67 MM HG (80-95); Arterial Total CO2 iSTAT 34 MMO/L (23-27); Arterial pH iSTAT 7.412 (7.35-7.45)
[2022-08-14] MEDS: PANTOPRAZOLE 40 MG TABLET PO SCH (09:59)
[2022-08-14] MEDS: APIXABAN 5 MG TABLET PO SCH ×2 (09:59→20:08)
[2022-08-14] MEDS: methylPREDNISolone SOD SUC 40 MG/1 ML VIAL IV SCH ×3 (10:00→21:00)
[2022-08-14] MEDS: ALPRAZolam 0.25 MG TABLET PO PRN ×2 (11:02→19:59)
[2022-08-14] MEDS ORDERED: DIGOXIN 0.5 MG/2 ML AMP IV ONE (12:59)
[2022-08-14] MEDS: PIPERACILLIN/TAZOBACTAM 3,375 MG in SODIUM CHLORIDE 0.9% 100 ML IV SCH ×2 (13:12→20:00)
[2022-08-14] MEDS: BUDESONIDE 0.5 MG/2 ML NEB RESP TX SCH (19:16)
[2022-08-15] MEDS: ALBUTEROL/IPRATROPIUM 3 ML NEB RESP TX SCH ×4 (00:36→19:59)
[2022-08-15] MEDS: PIPERACILLIN/TAZOBACTAM 3,375 MG in SODIUM CHLORIDE 0.9% 100 ML IV SCH ×3 (04:23→21:12)
[2022-08-15] MEDS: methylPREDNISolone SOD SUC 40 MG/1 ML VIAL IV SCH ×4 (04:23→23:19)
[2022-08-15] MEDS: DILTIAZEM INJ 100 MG in SODIUM CHLORIDE 0.9% 100 ML IV SCH (04:24)
[2022-08-15 05:54] LABS: Basophils % 0.1 % (0.0-0.8); Hemoglobin 7.6 GM/DL (12.0-16.0); Immature Granulocytes % 0.8 %; Lymphocytes # 0.3 10*3/uL (1.4-4.0); Mean Corpuscular HGB Conc 29.2 GM/DL (32-36); Mean Corpuscular Volume 86.4 FL (87-102); Mean Platelet Volume 9.8 FL (9.6-12.0); Monocytes # 0.3 10*3/uL (0.11-0.8); Monocytes % 2.5 % (1.7-12.7); Neutrophils % 94.6 % (38.7-73.9); Platelet Count 204 T/CUMM (130-400); Red Blood Count 3.01 MC/CUMM (3.8-5.5); White Blood Count 12.76 T/CUMM (4-12)
[2022-08-15 06:27] LABS: Albumin 2.7 G/DL (3.4-5.0); Bilirubin,Direct 0.12 MG/DL (0.0-0.20); Bilirubin,Indirect 0.3 MG/DL (0.0-1.0); Bilirubin,Total 0.4 MG/DL (0.20-1.00); Calcium 8.7 MG/DL (8.5-10.1); Osmolality,Calculated 285.3 MOS/KG (273-304); Potassium 3.9 MMOL/L (3.5-5.1); Thyroid Stimulating Hormone 0.962 uIU/ml (0.358-3.74); Total Protein 5.8 G/DL (6.4-8.2)
[2022-08-15 06:43] LABS: Anisocytosis 1+; Band Neutrophils 1 % (0-10); Lymphocytes 4 % (20-55); Total Cells Counted 100
[2022-08-15 06:44] LABS: Ovalocytes 1+; Platelet Estimate Adequate
[2022-08-15] MEDS: BUDESONIDE 0.5 MG/2 ML NEB RESP TX SCH ×2 (07:10→19:59)
[2022-08-15] MEDS: ALPRAZolam 0.25 MG TABLET PO PRN ×3 (09:44→21:12)
[2022-08-15] MEDS: APIXABAN 5 MG TABLET PO SCH (09:44)
[2022-08-15] MEDS: PANTOPRAZOLE 40 MG TABLET PO SCH (09:45)
[2022-08-15] MEDS: DILTIAZEM 30 MG TABLET PO SCH ×3 (16:47→21:01)
[2022-08-15] MEDS: VANCOMYCIN INJ 500 MG in SODIUM CHLORIDE 0.9% 100 ML IV SCH (17:35)
[2022-08-15 18:35] LABS: Basophils % 0.1 % (0.0-0.8); Hematocrit 25.8 VOL% (35.7-47.0); Hemoglobin 7.6 GM/DL (12.0-16.0); Immature Granulocytes % 0.6 %; Immature Granulocytes Absolute 0.09 #; Lymphocytes # 0.3 10*3/uL (1.4-4.0); Lymphocytes % 1.8 % (21.3-54.2); Mean Corpuscular HGB Conc 29.5 GM/DL (32-36); Mean Corpuscular Volume 84.6 FL (87-102); Mean Platelet Volume 9.8 FL (9.6-12.0); Monocytes # 0.5 10*3/uL (0.11-0.8); Monocytes % 3.2 % (1.7-12.7); Neutrophils % 94.3 % (38.7-73.9); Platelet Count 237 T/CUMM (130-400); Red Blood Count 3.05 MC/CUMM (3.8-5.5); White Blood Count 14.52 T/CUMM (4-12)
[2022-08-15 18:57] LABS: Lymphocytes 2 % (20-55); Total Cells Counted 100
[2022-08-15 18:58] LABS: Hypochromia 1+; Ovalocytes 1+; Platelet Estimate Adequate
[2022-08-15 18:59] LABS: Microcytosis 2+
[2022-08-15] MEDS: APIXABAN 2.5 MG TABLET PO SCH (21:01)
[2022-08-16] MEDS: ALBUTEROL/IPRATROPIUM 3 ML NEB RESP TX SCH ×3 (01:27→12:44)
[2022-08-16] MEDS: methylPREDNISolone SOD SUC 40 MG/1 ML VIAL IV SCH ×4 (04:20→21:10)
[2022-08-16] MEDS: PIPERACILLIN/TAZOBACTAM 3,375 MG in SODIUM CHLORIDE 0.9% 100 ML IV SCH ×3 (04:25→20:03)
[2022-08-16 04:51] LABS: Basophils % 0.1 % (0.0-0.8); Hematocrit 26.3 VOL% (35.7-47.0); Hemoglobin 7.7 GM/DL (12.0-16.0); Immature Granulocytes % 0.9 %; Lymphocytes # 0.2 10*3/uL (1.4-4.0); Lymphocytes % 1.9 % (21.3-54.2); Mean Corpuscular HGB Conc 29.3 GM/DL (32-36); Mean Corpuscular Volume 85.4 FL (87-102); Mean Platelet Volume 9.9 FL (9.6-12.0); Monocytes # 0.3 10*3/uL (0.11-0.8); Monocytes % 2.8 % (1.7-12.7); Neutrophils % 94.3 % (38.7-73.9); Platelet Count 230 T/CUMM (130-400); Red Blood Count 3.08 MC/CUMM (3.8-5.5); Red Cell Distribution Width 17.8 % (9.3-17.3); White Blood Count 10.54 T/CUMM (4-12)
[2022-08-16 05:12] LABS: Calcium 9.2 MG/DL (8.5-10.1); Osmolality,Calculated 283.4 MOS/KG (273-304); Potassium 4.3 MMOL/L (3.5-5.1)
[2022-08-16 05:13] LABS: Lymphocytes 1 % (20-55); Total Cells Counted 100
[2022-08-16 05:14] LABS: Hypochromia 1+; Microcytosis 1+; Ovalocytes Slight; Platelet Estimate Adequate
[2022-08-16 05:21] LABS: Alanine Aminotransferase 42 U/L (13-56); Albumin 2.9 G/DL (3.4-5.0); Alkaline Phosphatase 65 U/L (45-117); Aspartate Amino Transferase 22 U/L (0-37); Bilirubin,Total < 0.39 MG/DL (0.20-1.00); Blood Urea Nitrogen 17 MG/DL (7-18); Calcium 9.1 MG/DL (8.5-10.1); Carbon Dioxide 32 MMOL/L (21-32); Chloride 104 MMOL/L (98-107); Glucose 158 MG/DL (74-106); Osmolality,Calculated 281.5 MOS/KG (273-304); Potassium 4.3 MMOL/L (3.5-5.1); Sodium 139 MMOL/L (136-145); Total Protein 5.5 G/DL (6.4-8.2)
[2022-08-16] MEDS: BUDESONIDE 0.5 MG/2 ML NEB RESP TX SCH ×2 (07:53→19:31)
[2022-08-16] MEDS: PANTOPRAZOLE 40 MG TABLET PO SCH (09:41)
[2022-08-16] MEDS: APIXABAN 2.5 MG TABLET PO SCH ×2 (09:41→20:55)
[2022-08-16] MEDS: DILTIAZEM 30 MG TABLET PO SCH (09:41)
[2022-08-16] MEDS: ALPRAZolam 0.25 MG TABLET PO PRN (09:41)
[2022-08-16] MEDS ORDERED: DILTIAZEM 30 MG TABLET PO ONE (09:50)
[2022-08-16] MEDS: VANCOMYCIN INJ 500 MG in SODIUM CHLORIDE 0.9% 100 ML IV SCH ×2 (13:45→23:39)
[2022-08-16] MEDS: DILTIAZEM INJ 100 MG in SODIUM CHLORIDE 0.9% 100 ML IV SCH (14:13)
[2022-08-16] MEDS: DILTIAZEM 60 MG TABLET PO SCH ×2 (16:05→20:56)
[2022-08-16] MEDS ORDERED: ALBUTEROL 2.5 MG/3 ML NEB RESP TX PRN (18:29)
[2022-08-16] MEDS ORDERED: FUROSEMIDE 20 MG/2 ML VIAL IV ONE (18:34)
[2022-08-16] MEDS: ALBUTEROL 2.5 MG/3 ML NEB RESP TX SCH (19:31)
[2022-08-16] MEDS: ALPRAZolam 0.25 MG TABLET PO SCH (20:55)
[2022-08-16] MEDS: FERROUS SULFATE 325 MG TABLET PO SCH (20:55)
[2022-08-16] MEDS: ZINC OXIDE PASTE 113 GM TUBE TOP SCH (20:56)
[2022-08-16] MEDS: VANCOMYCIN INJ 750 MG in SODIUM CHLORIDE 0.9% 250 ML IV SCH (23:42)
[2022-08-17] MEDS: ALBUTEROL 2.5 MG/3 ML NEB RESP TX SCH ×4 (00:24→20:09)
[2022-08-17] MEDS: DILTIAZEM INJ 100 MG in SODIUM CHLORIDE 0.9% 100 ML IV SCH (03:54)
[2022-08-17] MEDS: methylPREDNISolone SOD SUC 40 MG/1 ML VIAL IV SCH ×4 (03:58→18:16)
[2022-08-17] MEDS: PIPERACILLIN/TAZOBACTAM 3,375 MG in SODIUM CHLORIDE 0.9% 100 ML IV SCH ×2 (03:58→16:47)
[2022-08-17 04:42] LABS: Hematocrit 24.3 VOL% (35.7-47.0); Hemoglobin 7.1 GM/DL (12.0-16.0); Lymphocytes # 0.2 10*3/uL (1.4-4.0); Lymphocytes % 1.6 % (21.3-54.2); Mean Corpuscular HGB Conc 29.2 GM/DL (32-36); Mean Corpuscular Volume 84.1 FL (87-102); Mean Platelet Volume 9.4 FL (9.6-12.0); Monocytes # 0.4 10*3/uL (0.11-0.8); Monocytes % 4.3 % (1.7-12.7); NRBC # 0.02 10*3/uL; Neutrophils % 93.1 % (38.7-73.9); Platelet Count 232 T/CUMM (130-400); Red Blood Count 2.89 MC/CUMM (3.8-5.5); Red Cell Distribution Width 17.7 % (9.3-17.3); White Blood Count 10.01 T/CUMM (4-12)
[2022-08-17 05:02] LABS: Calcium 8.6 MG/DL (8.5-10.1); Osmolality,Calculated 285.4 MOS/KG (273-304); Potassium 3.7 MMOL/L (3.5-5.1)
[2022-08-17 05:06] LABS: Alanine Aminotransferase 38 U/L (13-56); Albumin 2.7 G/DL (3.4-5.0); Alkaline Phosphatase 74 U/L (45-117); Aspartate Amino Transferase 14 U/L (0-37); Bilirubin,Total < 0.39 MG/DL (0.20-1.00); Blood Urea Nitrogen 20 MG/DL (7-18); Calcium 8.6 MG/DL (8.5-10.1); Carbon Dioxide 34 MMOL/L (21-32); Chloride 104 MMOL/L (98-107); Glucose 166 MG/DL (74-106); Osmolality,Calculated 287.3 MOS/KG (273-304); Potassium 4.2 MMOL/L (3.5-5.1); Sodium 141 MMOL/L (136-145); Total Protein 5.6 G/DL (6.4-8.2)
[2022-08-17 05:10] LABS: Hypochromia 1+; Lymphocytes 2 % (20-55); Microcytosis 1+; Ovalocytes Few; Platelet Estimate Normal; Total Cells Counted 100
[2022-08-17] MEDS: BUDESONIDE 0.5 MG/2 ML NEB RESP TX SCH ×2 (07:40→20:09)
[2022-08-17] MEDS: PANTOPRAZOLE 40 MG TABLET PO SCH (09:38)
[2022-08-17] MEDS: MONTELUKAST 10 MG TABLET PO SCH (09:38)
[2022-08-17] MEDS: ASPIRIN EC 81 MG TABLET PO SCH (09:38)
[2022-08-17] MEDS: APIXABAN 2.5 MG TABLET PO SCH ×2 (09:38→20:34)
[2022-08-17] MEDS: ALPRAZolam 0.25 MG TABLET PO SCH ×3 (09:38→20:34)
[2022-08-17] MEDS: FERROUS SULFATE 325 MG TABLET PO SCH ×2 (09:38→20:34)
[2022-08-17] MEDS: SERTRALINE 25 MG TABLET PO SCH (09:38)
[2022-08-17] MEDS: FUROSEMIDE 20 MG/2 ML VIAL IV SCH (09:39)
[2022-08-17] MEDS: DILTIAZEM 60 MG TABLET PO SCH ×3 (09:39→20:34)
[2022-08-17] MEDS: ZINC OXIDE PASTE 113 GM TUBE TOP SCH ×2 (09:43→20:34)
[2022-08-17] MEDS: VANCOMYCIN INJ 750 MG in SODIUM CHLORIDE 0.9% 250 ML IV SCH (12:56)
[2022-08-17] MEDS: LIDOCAINE 5% PATCH TRANSDERM SCH (13:42)
[2022-08-17] MEDS ORDERED: SODIUM CHLORIDE 0.9% 1,000 ML IV PRN (23:33)
[2022-08-18] MEDS: VANCOMYCIN INJ 750 MG in SODIUM CHLORIDE 0.9% 250 ML IV SCH ×3 (00:42→23:50)
[2022-08-18] MEDS: PIPERACILLIN/TAZOBACTAM 3,375 MG in SODIUM CHLORIDE 0.9% 100 ML IV SCH ×3 (00:50→17:46)
[2022-08-18] MEDS: ALBUTEROL 2.5 MG/3 ML NEB RESP TX SCH ×4 (02:18→19:40)
[2022-08-18] MEDS: methylPREDNISolone SOD SUC 40 MG/1 ML VIAL IV SCH ×3 (03:45→17:41)
[2022-08-18 05:20] LABS: Basophils % 0.1 % (0.0-0.8); Hematocrit 26.7 VOL% (35.7-47.0); Hemoglobin 7.7 GM/DL (12.0-16.0); Immature Granulocytes % 4.8 %; Immature Granulocytes Absolute 0.47 #; Lymphocytes # 0.2 10*3/uL (1.4-4.0); Lymphocytes % 1.7 % (21.3-54.2); Mean Corpuscular HGB Conc 28.8 GM/DL (32-36); Mean Corpuscular Volume 84.8 FL (87-102); Mean Platelet Volume 9.7 FL (9.6-12.0); Monocytes # 0.5 10*3/uL (0.11-0.8); Monocytes % 5.2 % (1.7-12.7); NRBC # 0.03 10*3/uL; Neutrophils % 88.2 % (38.7-73.9); Platelet Count 268 T/CUMM (130-400); Red Blood Count 3.15 MC/CUMM (3.8-5.5); Red Cell Distribution Width 17.6 % (9.3-17.3); White Blood Count 9.73 T/CUMM (4-12)
[2022-08-18 05:52] LABS: Albumin 2.8 G/DL (3.4-5.0); Bilirubin,Total 0.4 MG/DL (0.20-1.00); Calcium 8.8 MG/DL (8.5-10.1); Potassium 3.6 MMOL/L (3.5-5.1); Total Protein 5.7 G/DL (6.4-8.2)
[2022-08-18 05:55] LABS: Lymphocytes 3 % (20-55); Total Cells Counted 100
[2022-08-18 05:59] LABS: Hypochromia Slight; Microcytosis 1+; Ovalocytes Few; Platelet Estimate Normal
[2022-08-18] MEDS: BUDESONIDE 0.5 MG/2 ML NEB RESP TX SCH (07:07)
[2022-08-18] MEDS: DILTIAZEM 60 MG TABLET PO SCH ×3 (09:11→21:26)
[2022-08-18] MEDS: FERROUS SULFATE 325 MG TABLET PO SCH ×2 (09:12→21:25)
[2022-08-18] MEDS: LIDOCAINE 5% PATCH TRANSDERM SCH ×2 (09:12→09:20)
[2022-08-18] MEDS: PANTOPRAZOLE 40 MG TABLET PO SCH (09:12)
[2022-08-18] MEDS: MONTELUKAST 10 MG TABLET PO SCH (09:12)
[2022-08-18] MEDS: ASPIRIN EC 81 MG TABLET PO SCH (09:12)
[2022-08-18] MEDS: APIXABAN 2.5 MG TABLET PO SCH ×2 (09:12→21:25)
[2022-08-18] MEDS: ALPRAZolam 0.25 MG TABLET PO SCH ×3 (09:12→21:24)
[2022-08-18] MEDS: SERTRALINE 25 MG TABLET PO SCH (09:12)
[2022-08-18] MEDS: ZINC OXIDE PASTE 113 GM TUBE TOP SCH ×2 (09:13→21:25)
[2022-08-18] MEDS ORDERED: DOCUSATE SODIUM 100 MG/10 ML UDCUP PO ONE (10:16)
[2022-08-18] MEDS: FUROSEMIDE 20 MG/2 ML VIAL IV SCH (11:15)
[2022-08-19] MEDS: ALBUTEROL 2.5 MG/3 ML NEB RESP TX SCH ×4 (01:10→20:05)
[2022-08-19] MEDS: PIPERACILLIN/TAZOBACTAM 3,375 MG in SODIUM CHLORIDE 0.9% 100 ML IV SCH ×4 (01:22→23:23)
[2022-08-19] MEDS: methylPREDNISolone SOD SUC 40 MG/1 ML VIAL IV SCH ×3 (01:36→18:30)
[2022-08-19 05:14] LABS: Basophils % 0.1 % (0.0-0.8); Hemoglobin 7.3 GM/DL (12.0-16.0); Immature Granulocytes % 3.6 %; Immature Granulocytes Absolute 0.35 #; Lymphocytes # 0.2 10*3/uL (1.4-4.0); Lymphocytes % 2.3 % (21.3-54.2); Mean Corpuscular HGB Conc 29.2 GM/DL (32-36); Mean Corpuscular Volume 83.6 FL (87-102); Mean Platelet Volume 9.6 FL (9.6-12.0); Monocytes # 0.4 10*3/uL (0.11-0.8); Monocytes % 3.6 % (1.7-12.7); Neutrophils % 90.4 % (38.7-73.9); Platelet Count 250 T/CUMM (130-400); Red Blood Count 2.99 MC/CUMM (3.8-5.5); Red Cell Distribution Width 17.2 % (9.3-17.3); White Blood Count 9.67 T/CUMM (4-12)
[2022-08-19 05:35] LABS: Albumin 2.4 G/DL (3.4-5.0); Bilirubin,Total 0.4 MG/DL (0.20-1.00); Calcium 8.3 MG/DL (8.5-10.1); Eosinophils 1 % (0-10); Lymphocytes 4 % (20-55); Nucleated Red Blood Cells 1 /100 WBC (0-5); Osmolality,Calculated 288.1 MOS/KG (273-304); Platelet Estimate Normal; Potassium 3.9 MMOL/L (3.5-5.1); Total Cells Counted 100; Total Protein 5.4 G/DL (6.4-8.2)
[2022-08-19 05:36] LABS: Hypochromia 1+; Microcytosis Slight; Ovalocytes Few
[2022-08-19] MEDS ORDERED: VANCOMYCIN INJ 1,000 MG in SODIUM CHLORIDE 0.9% 250 ML IV SCH (09:00)
[2022-08-19] MEDS: SERTRALINE 25 MG TABLET PO SCH (09:36)
[2022-08-19] MEDS: ASPIRIN EC 81 MG TABLET PO SCH (09:36)
[2022-08-19] MEDS: APIXABAN 2.5 MG TABLET PO SCH ×2 (09:36→21:00)
[2022-08-19] MEDS: ALPRAZolam 0.25 MG TABLET PO SCH ×3 (09:36→20:59)
[2022-08-19] MEDS: DOCUSATE SODIUM 100 MG CAPSULE PO SCH (09:36)
[2022-08-19] MEDS: MONTELUKAST 10 MG TABLET PO SCH (09:36)
[2022-08-19] MEDS: DILTIAZEM 60 MG TABLET PO SCH ×3 (09:36→21:00)
[2022-08-19] MEDS: PANTOPRAZOLE 40 MG TABLET PO SCH (09:36)
[2022-08-19] MEDS: LIDOCAINE 5% PATCH TRANSDERM SCH (09:48)
[2022-08-19] MEDS: FERROUS SULFATE 325 MG TABLET PO SCH ×2 (09:48→21:00)
[2022-08-19] MEDS: DILTIAZEM INJ 100 MG in SODIUM CHLORIDE 0.9% 100 ML IV SCH (11:18)
[2022-08-19] MEDS: FUROSEMIDE 20 MG/2 ML VIAL IV SCH (11:27)
[2022-08-19] MEDS: ZINC OXIDE PASTE 113 GM TUBE TOP SCH ×2 (11:29→21:01)
[2022-08-19] MEDS ORDERED: ALUMINUM/MAGNES/SIMETH MAX STR 30 ML UDCUP PO PRN (18:38)
[2022-08-20] MEDS: ALBUTEROL 2.5 MG/3 ML NEB RESP TX SCH ×4 (00:37→19:39)
[2022-08-20] MEDS: methylPREDNISolone SOD SUC 40 MG/1 ML VIAL IV SCH ×3 (02:03→18:33)
[2022-08-20 05:17] LABS: Basophils % 0.3 % (0.0-0.8); Hematocrit 26.5 VOL% (35.7-47.0); Hemoglobin 7.9 GM/DL (12.0-16.0); Immature Granulocytes % 4.1 %; Immature Granulocytes Absolute 0.59 #; Lymphocytes # 0.2 10*3/uL (1.4-4.0); Lymphocytes % 1.4 % (21.3-54.2); Mean Corpuscular HGB Conc 29.8 GM/DL (32-36); Mean Corpuscular Volume 82.8 FL (87-102); Mean Platelet Volume 9.2 FL (9.6-12.0); Monocytes # 0.5 10*3/uL (0.11-0.8); Monocytes % 3.5 % (1.7-12.7); Neutrophils % 90.7 % (38.7-73.9); Platelet Count 312 T/CUMM (130-400); Red Cell Distribution Width 16.9 % (9.3-17.3); White Blood Count 14.48 T/CUMM (4-12)
[2022-08-20 05:40] LABS: Hypochromia Slight; Lymphocytes 2 % (20-55); Microcytosis Slight; Ovalocytes Slight; Platelet Estimate Adequate; Total Cells Counted 100
[2022-08-20] MEDS: DILTIAZEM INJ 100 MG in SODIUM CHLORIDE 0.9% 100 ML IV SCH (07:54)
[2022-08-20] MEDS: PIPERACILLIN/TAZOBACTAM 3,375 MG in SODIUM CHLORIDE 0.9% 100 ML IV SCH ×2 (08:07→15:52)
[2022-08-20] MEDS: ALPRAZolam 0.25 MG TABLET PO SCH ×3 (10:31→21:08)
[2022-08-20] MEDS: FUROSEMIDE 20 MG/2 ML VIAL IV SCH (10:31)
[2022-08-20] MEDS: ASPIRIN EC 81 MG TABLET PO SCH (10:31)
[2022-08-20] MEDS: DOCUSATE SODIUM 100 MG CAPSULE PO SCH (10:31)
[2022-08-20] MEDS: APIXABAN 2.5 MG TABLET PO SCH ×2 (10:31→21:08)
[2022-08-20] MEDS: MONTELUKAST 10 MG TABLET PO SCH (10:31)
[2022-08-20] MEDS: SERTRALINE 25 MG TABLET PO SCH (10:31)
[2022-08-20] MEDS: PANTOPRAZOLE 40 MG TABLET PO SCH (10:32)
[2022-08-20] MEDS: FERROUS SULFATE 325 MG TABLET PO SCH ×2 (10:32→21:10)
[2022-08-20] MEDS: DILTIAZEM 60 MG TABLET PO SCH ×3 (10:32→21:08)
[2022-08-20] MEDS: ZINC OXIDE PASTE 113 GM TUBE TOP SCH ×2 (10:33→21:09)
[2022-08-20] MEDS: LIDOCAINE 5% PATCH TRANSDERM SCH (10:45)
[2022-08-20] MEDS: NYSTATIN 500,000 UNIT/5 ML UDCUP SWISH/SWAL SCH ×2 (16:34→21:08)
[2022-08-21] MEDS: PIPERACILLIN/TAZOBACTAM 3,375 MG in SODIUM CHLORIDE 0.9% 100 ML IV SCH ×3 (00:05→16:41)
[2022-08-21] MEDS: ALBUTEROL 2.5 MG/3 ML NEB RESP TX SCH ×4 (01:10→19:15)
[2022-08-21] MEDS: methylPREDNISolone SOD SUC 40 MG/1 ML VIAL IV SCH ×3 (01:51→18:06)
[2022-08-21] MEDS: DILTIAZEM INJ 100 MG in SODIUM CHLORIDE 0.9% 100 ML IV SCH (04:32)
[2022-08-21 04:40] LABS: Basophils % 0.1 % (0.0-0.8); Hematocrit 26.6 VOL% (35.7-47.0); Hemoglobin 7.9 GM/DL (12.0-16.0); Immature Granulocytes % 5.3 %; Immature Granulocytes Absolute 0.85 #; Lymphocytes # 0.2 10*3/uL (1.4-4.0); Lymphocytes % 1.3 % (21.3-54.2); Mean Corpuscular HGB Conc 29.7 GM/DL (32-36); Mean Corpuscular Volume 82.9 FL (87-102); Mean Platelet Volume 9.6 FL (9.6-12.0); Monocytes # 0.6 10*3/uL (0.11-0.8); Monocytes % 3.8 % (1.7-12.7); Neutrophils % 89.5 % (38.7-73.9); Platelet Count 360 T/CUMM (130-400); Red Blood Count 3.21 MC/CUMM (3.8-5.5); White Blood Count 15.97 T/CUMM (4-12)
[2022-08-21 05:05] LABS: Band Neutrophils 1 % (0-10); Hypersegmented Neutrophil SLIGHT; Hypochromia Slight; Lymphocytes 2 % (20-55); Microcytosis Slight; Ovalocytes Few; Polychromasia Slight; Total Cells Counted 100
[2022-08-21 05:06] LABS: Platelet Estimate Normal
[2022-08-21] MEDS ORDERED: cefTRIAXone 1,000 MG in SODIUM CHLORIDE 0.9% 100 ML IV ONE (08:34)
[2022-08-21] MEDS: APIXABAN 2.5 MG TABLET PO SCH ×2 (08:41→23:20)
[2022-08-21] MEDS: PANTOPRAZOLE 40 MG TABLET PO SCH (08:42)
[2022-08-21] MEDS: FUROSEMIDE 20 MG/2 ML VIAL IV SCH (08:42)
[2022-08-21] MEDS: ALPRAZolam 0.25 MG TABLET PO SCH ×3 (08:42→23:20)
[2022-08-21] MEDS: NYSTATIN 500,000 UNIT/5 ML UDCUP SWISH/SWAL SCH ×4 (08:42→23:20)
[2022-08-21] MEDS: MONTELUKAST 10 MG TABLET PO SCH (08:42)
[2022-08-21] MEDS: FERROUS SULFATE 325 MG TABLET PO SCH ×2 (08:42→23:20)
[2022-08-21] MEDS: SERTRALINE 25 MG TABLET PO SCH (08:42)
[2022-08-21] MEDS: ASPIRIN EC 81 MG TABLET PO SCH (08:42)
[2022-08-21] MEDS: DOCUSATE SODIUM 100 MG CAPSULE PO SCH (08:42)
[2022-08-21] MEDS: DILTIAZEM 60 MG TABLET PO SCH ×3 (08:43→23:20)
[2022-08-21] MEDS: LIDOCAINE 5% PATCH TRANSDERM SCH (10:19)
[2022-08-21] MEDS: ZINC OXIDE PASTE 113 GM TUBE TOP SCH ×2 (12:09→23:20)
[2022-08-22] MEDS: ALBUTEROL 2.5 MG/3 ML NEB RESP TX SCH ×4 (01:40→18:54)
[2022-08-22] MEDS: methylPREDNISolone SOD SUC 40 MG/1 ML VIAL IV SCH ×3 (02:48→17:31)
[2022-08-22] MEDS: DILTIAZEM INJ 100 MG in SODIUM CHLORIDE 0.9% 100 ML IV SCH (07:43)
[2022-08-22] MEDS: LIDOCAINE 5% PATCH TRANSDERM SCH (09:40)
[2022-08-22] MEDS: NYSTATIN 500,000 UNIT/5 ML UDCUP SWISH/SWAL SCH ×4 (09:49→21:00)
[2022-08-22] MEDS: ALPRAZolam 0.25 MG TABLET PO SCH ×3 (09:50→21:00)
[2022-08-22] MEDS: SERTRALINE 25 MG TABLET PO SCH (09:50)
[2022-08-22] MEDS: MONTELUKAST 10 MG TABLET PO SCH (09:50)
[2022-08-22] MEDS: PANTOPRAZOLE 40 MG TABLET PO SCH (09:51)
[2022-08-22] MEDS: FERROUS SULFATE 325 MG TABLET PO SCH ×2 (09:51→21:00)
[2022-08-22] MEDS: APIXABAN 2.5 MG TABLET PO SCH ×2 (09:51→21:00)
[2022-08-22] MEDS: ASPIRIN EC 81 MG TABLET PO SCH (09:51)
[2022-08-22] MEDS: DOCUSATE SODIUM 100 MG CAPSULE PO SCH (09:51)
[2022-08-22] MEDS: FUROSEMIDE 20 MG/2 ML VIAL IV SCH (09:52)
[2022-08-22] MEDS: ZINC OXIDE PASTE 113 GM TUBE TOP SCH ×2 (09:57→21:00)
[2022-08-22] MEDS: DILTIAZEM 60 MG TABLET PO SCH ×3 (09:58→21:00)
[2022-08-23] MEDS: ALBUTEROL 2.5 MG/3 ML NEB RESP TX SCH ×4 (00:49→19:10)
[2022-08-23] MEDS: methylPREDNISolone SOD SUC 40 MG/1 ML VIAL IV SCH ×3 (01:47→19:14)
[2022-08-23 05:22] LABS: Basophils % 0.2 % (0.0-0.8); Hematocrit 25.8 VOL% (35.7-47.0); Hemoglobin 7.7 GM/DL (12.0-16.0); Immature Granulocytes % 6.3 %; Immature Granulocytes Absolute 1.19 #; Lymphocytes # 0.2 10*3/uL (1.4-4.0); Mean Corpuscular HGB Conc 29.8 GM/DL (32-36); Mean Corpuscular Volume 83.5 FL (87-102); Mean Platelet Volume 9.4 FL (9.6-12.0); Monocytes # 0.9 10*3/uL (0.11-0.8); Monocytes % 4.5 % (1.7-12.7); NRBC # 0.02 10*3/uL; Platelet Count 374 T/CUMM (130-400); Red Blood Count 3.09 MC/CUMM (3.8-5.5); Red Cell Distribution Width 16.7 % (9.3-17.3); White Blood Count 18.75 T/CUMM (4-12)
[2022-08-23 05:43] LABS: Osmolality,Calculated 286.5 MOS/KG (273-304); Potassium 3.3 MMOL/L (3.5-5.1)
[2022-08-23 05:54] LABS: Hypochromia Slight; Lymphocytes 1 % (20-55); Metamyelocytes 1 %; Microcytosis Slight; Myelocytes 1 %; Ovalocytes Few; Total Cells Counted 100
[2022-08-23 05:55] LABS: Platelet Estimate Normal
[2022-08-23] MEDS: DILTIAZEM INJ 100 MG in SODIUM CHLORIDE 0.9% 100 ML IV SCH (05:58)
[2022-08-23] MEDS: ZINC OXIDE PASTE 113 GM TUBE TOP SCH ×2 (09:57→21:33)
[2022-08-23] MEDS: FUROSEMIDE 20 MG/2 ML VIAL IV SCH (09:58)
[2022-08-23] MEDS: DOCUSATE SODIUM 100 MG CAPSULE PO SCH (09:58)
[2022-08-23] MEDS: ASPIRIN EC 81 MG TABLET PO SCH (09:58)
[2022-08-23] MEDS: DILTIAZEM 60 MG TABLET PO SCH ×3 (09:58→21:33)
[2022-08-23] MEDS: PANTOPRAZOLE 40 MG TABLET PO SCH (09:58)
[2022-08-23] MEDS: NYSTATIN 500,000 UNIT/5 ML UDCUP SWISH/SWAL SCH ×4 (09:58→21:33)
[2022-08-23] MEDS: ALPRAZolam 0.25 MG TABLET PO SCH ×3 (09:58→21:33)
[2022-08-23] MEDS: MONTELUKAST 10 MG TABLET PO SCH (09:59)
[2022-08-23] MEDS: APIXABAN 2.5 MG TABLET PO SCH ×2 (09:59→21:33)
[2022-08-23] MEDS: FERROUS SULFATE 325 MG TABLET PO SCH ×2 (09:59→21:52)
[2022-08-23] MEDS: SERTRALINE 25 MG TABLET PO SCH (09:59)
[2022-08-23] MEDS: LIDOCAINE 5% PATCH TRANSDERM SCH (10:00)
[2022-08-23 19:51] LABS: Bilirubin,Urine Negative (Negative); Blood, Urine Large mg/dL (Negative); Glucose,Urine (UA) Negative (Negative); Ketones,Urine Negative (Negative); Nitrite,Urine Negative (Negative); Protein,Urine 30 mg/dL (Negative); Urine Appearance Clear (Clear); Urine Color Yellow (Yellow)
[2022-08-23 19:54] LABS: RBC,Urine 184 /HPF (0-4); Squamous Epithelial Cell,Urine Few /HPF (0-10)
[2022-08-23] MEDS ORDERED: POTASSIUM CHLORIDE 20 MEQ TABLET PO ONE (20:44)
[2022-08-23] MEDS ORDERED: POTASSIUM CHLORIDE 20 MEQ TABLET PO PRN (20:44)
[2022-08-23] MEDS: cefTRIAXone 1,000 MG in SODIUM CHLORIDE 0.9% 100 ML IV SCH (21:35)
[2022-08-24] MEDS: ALBUTEROL 2.5 MG/3 ML NEB RESP TX SCH ×4 (00:29→22:17)
[2022-08-24] MEDS: DILTIAZEM INJ 100 MG in SODIUM CHLORIDE 0.9% 100 ML IV SCH (05:31)
[2022-08-24 05:34] LABS: Basophils % 0.1 % (0.0-0.8); Hematocrit 23.7 VOL% (35.7-47.0); Hemoglobin 7.2 GM/DL (12.0-16.0); Immature Granulocytes % 5.5 %; Immature Granulocytes Absolute 1.16 #; Lymphocytes # 0.3 10*3/uL (1.4-4.0); Lymphocytes % 1.5 % (21.3-54.2); Mean Corpuscular HGB Conc 30.4 GM/DL (32-36); Mean Corpuscular Volume 81.7 FL (87-102); Mean Platelet Volume 9.3 FL (9.6-12.0); Monocytes # 0.7 10*3/uL (0.11-0.8); Monocytes % 3.4 % (1.7-12.7); Neutrophils % 89.5 % (38.7-73.9); Platelet Count 340 T/CUMM (130-400); White Blood Count 20.94 T/CUMM (4-12)
[2022-08-24] MEDS: methylPREDNISolone SOD SUC 40 MG/1 ML VIAL IV SCH ×3 (05:41→23:16)
[2022-08-24 05:55] LABS: Hypochromia 1+; Lymphocytes 3 % (20-55); Microcytosis 1+; Total Cells Counted 100
[2022-08-24 05:56] LABS: Anisocytosis 1+; Ovalocytes Few; Polychromasia Slight
[2022-08-24 05:57] LABS: Platelet Estimate Normal
[2022-08-24 05:58] LABS: Calcium 8.7 MG/DL (8.5-10.1); Osmolality,Calculated 288.5 MOS/KG (273-304); Potassium 3.3 MMOL/L (3.5-5.1)
[2022-08-24] MEDS: MONTELUKAST 10 MG TABLET PO SCH (09:45)
[2022-08-24] MEDS: DILTIAZEM 60 MG TABLET PO SCH ×3 (09:45→23:14)
[2022-08-24] MEDS: NYSTATIN 500,000 UNIT/5 ML UDCUP SWISH/SWAL SCH ×4 (09:45→23:14)
[2022-08-24] MEDS: PANTOPRAZOLE 40 MG TABLET PO SCH (09:45)
[2022-08-24] MEDS: ASPIRIN EC 81 MG TABLET PO SCH (09:45)
[2022-08-24] MEDS: FUROSEMIDE 20 MG/2 ML VIAL IV SCH (09:46)
[2022-08-24] MEDS: DOCUSATE SODIUM 100 MG CAPSULE PO SCH (09:46)
[2022-08-24] MEDS: ZINC OXIDE PASTE 113 GM TUBE TOP SCH ×2 (09:46→23:14)
[2022-08-24] MEDS: APIXABAN 2.5 MG TABLET PO SCH ×2 (09:46→23:13)
[2022-08-24] MEDS: FERROUS SULFATE 325 MG TABLET PO SCH ×2 (09:46→23:14)
[2022-08-24] MEDS: SERTRALINE 25 MG TABLET PO SCH (09:46)
[2022-08-24] MEDS: LIDOCAINE 5% PATCH TRANSDERM SCH (10:59)
[2022-08-24] MEDS ORDERED: POTASSIUM CHLORIDE 20 MEQ TABLET PO ONE (13:11)
[2022-08-24] MEDS ORDERED: SODIUM CHLORIDE 0.9% 1,000 ML IV PRN (13:12)
[2022-08-24] MEDS: INSULIN REGULAR 100 UNIT/ML SUBCUT SCH (18:57)
[2022-08-24] MEDS: cefTRIAXone 1,000 MG in SODIUM CHLORIDE 0.9% 100 ML IV SCH (23:13)
[2022-08-24] MEDS: POTASSIUM CHLORIDE 20 MEQ TABLET PO SCH (23:13)
[2022-08-25] MEDS: ALBUTEROL 2.5 MG/3 ML NEB RESP TX SCH ×3 (01:18→15:54)
[2022-08-25] MEDS: methylPREDNISolone SOD SUC 40 MG/1 ML VIAL IV SCH ×2 (04:29→12:49)
[2022-08-25 04:34] LABS: Basophils # 0.1 10*3/uL (0.0-0.2); Basophils % 0.3 % (0.0-0.8); Hematocrit 34.6 VOL% (35.7-47.0); Hemoglobin 10.8 GM/DL (12.0-16.0); Immature Granulocytes % 5.1 %; Immature Granulocytes Absolute 1.34 #; Lymphocytes # 0.4 10*3/uL (1.4-4.0); Lymphocytes % 1.4 % (21.3-54.2); Mean Corpuscular HGB Conc 31.2 GM/DL (32-36); Mean Platelet Volume 9.1 FL (9.6-12.0); Monocytes # 1.2 10*3/uL (0.11-0.8); Monocytes % 4.4 % (1.7-12.7); Neutrophils % 88.8 % (38.7-73.9); Platelet Count 330 T/CUMM (130-400); Red Blood Count 4.12 MC/CUMM (3.8-5.5); Red Cell Distribution Width 16.6 % (9.3-17.3); White Blood Count 26.53 T/CUMM (4-12)
[2022-08-25] MEDS: DILTIAZEM INJ 100 MG in SODIUM CHLORIDE 0.9% 100 ML IV SCH (04:49)
[2022-08-25 04:55] LABS: Band Neutrophils 1 % (0-10); Lymphocytes 1 % (20-55); Microcytosis 1+; Total Cells Counted 100
[2022-08-25 04:56] LABS: Hypochromia Slight; Ovalocytes Few; Tear Drop Cells Slight
[2022-08-25 04:57] LABS: Platelet Estimate Normal
[2022-08-25 05:01] LABS: Calcium 8.8 MG/DL (8.5-10.1); Osmolality,Calculated 284.5 MOS/KG (273-304)
[2022-08-25] MEDS: INSULIN REGULAR 100 UNIT/ML SUBCUT SCH ×2 (09:24→17:56)
[2022-08-25] MEDS: NYSTATIN 500,000 UNIT/5 ML UDCUP SWISH/SWAL SCH ×4 (09:52→21:20)
[2022-08-25] MEDS: ASPIRIN EC 81 MG TABLET PO SCH (09:52)
[2022-08-25] MEDS: APIXABAN 2.5 MG TABLET PO SCH ×2 (09:52→21:20)
[2022-08-25] MEDS: POTASSIUM CHLORIDE 20 MEQ TABLET PO SCH ×2 (09:52→21:21)
[2022-08-25] MEDS: DOCUSATE SODIUM 100 MG CAPSULE PO SCH (09:52)
[2022-08-25] MEDS: DILTIAZEM 60 MG TABLET PO SCH ×3 (09:52→21:21)
[2022-08-25] MEDS: MONTELUKAST 10 MG TABLET PO SCH (09:52)
[2022-08-25] MEDS: FUROSEMIDE 20 MG/2 ML VIAL IV SCH (09:52)
[2022-08-25] MEDS: PANTOPRAZOLE 40 MG TABLET PO SCH (09:52)
[2022-08-25] MEDS: SERTRALINE 25 MG TABLET PO SCH (09:52)
[2022-08-25] MEDS: FERROUS SULFATE 325 MG TABLET PO SCH ×2 (09:52→21:20)
[2022-08-25] MEDS: LIDOCAINE 5% PATCH TRANSDERM SCH (09:59)
[2022-08-25] MEDS: ALPRAZolam 0.25 MG TABLET PO SCH ×4 (11:20→21:26)
[2022-08-25] MEDS: ZINC OXIDE PASTE 113 GM TUBE TOP SCH ×2 (11:20→21:21)
[2022-08-25] MEDS: ALBUTEROL/IPRATROPIUM 3 ML NEB RESP TX SCH (21:17)
[2022-08-25] MEDS: CYPROHEPTADINE 4 MG TABLET PO SCH (21:20)
[2022-08-25] MEDS: cefTRIAXone 1,000 MG in SODIUM CHLORIDE 0.9% 100 ML IV SCH (21:25)
[2022-08-26] MEDS: methylPREDNISolone SOD SUC 40 MG/1 ML VIAL IV SCH ×2 (01:06→13:48)
[2022-08-26] MEDS: ALBUTEROL/IPRATROPIUM 3 ML NEB RESP TX SCH ×4 (03:10→20:30)
[2022-08-26 04:53] LABS: Basophils # 0.1 10*3/uL (0.0-0.2); Basophils % 0.3 % (0.0-0.8); Hematocrit 34.1 VOL% (35.7-47.0); Hemoglobin 10.4 GM/DL (12.0-16.0); Immature Granulocytes % 5.1 %; Immature Granulocytes Absolute 1.11 #; Lymphocytes # 0.3 10*3/uL (1.4-4.0); Lymphocytes % 1.4 % (21.3-54.2); Mean Corpuscular HGB Conc 30.5 GM/DL (32-36); Mean Corpuscular Volume 86.1 FL (87-102); Mean Platelet Volume 9.1 FL (9.6-12.0); Monocytes # 0.9 10*3/uL (0.11-0.8); Monocytes % 4.2 % (1.7-12.7); Platelet Count 302 T/CUMM (130-400); Red Blood Count 3.96 MC/CUMM (3.8-5.5); Red Cell Distribution Width 16.9 % (9.3-17.3); White Blood Count 21.71 T/CUMM (4-12)
[2022-08-26 05:07] LABS: Calcium 8.8 MG/DL (8.5-10.1); Osmolality,Calculated 287.4 MOS/KG (273-304); Potassium 4.3 MMOL/L (3.5-5.1)
[2022-08-26 05:21] LABS: Hypochromia Slight; Lymphocytes 4 % (20-55); Microcytosis Slight; Platelet Estimate Adequate; Total Cells Counted 100
[2022-08-26] MEDS: FUROSEMIDE 20 MG/2 ML VIAL IV SCH (09:28)
[2022-08-26] MEDS: POTASSIUM CHLORIDE 20 MEQ TABLET PO SCH ×2 (09:29→21:08)
[2022-08-26] MEDS: MONTELUKAST 10 MG TABLET PO SCH (09:29)
[2022-08-26] MEDS: DOCUSATE SODIUM 100 MG CAPSULE PO SCH (09:29)
[2022-08-26] MEDS: PANTOPRAZOLE 40 MG TABLET PO SCH (09:29)
[2022-08-26] MEDS: CYPROHEPTADINE 4 MG TABLET PO SCH ×2 (09:29→21:08)
[2022-08-26] MEDS: FERROUS SULFATE 325 MG TABLET PO SCH ×2 (09:30→21:09)
[2022-08-26] MEDS: ALPRAZolam 0.25 MG TABLET PO SCH ×4 (09:30→21:09)
[2022-08-26] MEDS: NYSTATIN 500,000 UNIT/5 ML UDCUP SWISH/SWAL SCH ×4 (09:30→21:09)
[2022-08-26] MEDS: APIXABAN 2.5 MG TABLET PO SCH ×2 (09:30→21:09)
[2022-08-26] MEDS: ASPIRIN EC 81 MG TABLET PO SCH (09:30)
[2022-08-26] MEDS: DILTIAZEM 60 MG TABLET PO SCH ×3 (09:30→21:09)
[2022-08-26] MEDS: DILTIAZEM INJ 100 MG in SODIUM CHLORIDE 0.9% 100 ML IV SCH (09:31)
[2022-08-26] MEDS: INSULIN REGULAR 100 UNIT/ML SUBCUT SCH ×2 (09:31→18:07)
[2022-08-26] MEDS: ZINC OXIDE PASTE 113 GM TUBE TOP SCH ×2 (09:32→21:09)
[2022-08-26] MEDS: SERTRALINE 25 MG TABLET PO SCH (09:32)
[2022-08-26] MEDS: LIDOCAINE 5% PATCH TRANSDERM SCH (09:33)
[2022-08-26] MEDS: cefTRIAXone 1,000 MG in SODIUM CHLORIDE 0.9% 100 ML IV SCH (21:08)
[2022-08-27] MEDS ORDERED: ACETAMINOPHEN 325 MG TABLET PO PRN (00:13)
[2022-08-27] MEDS: methylPREDNISolone SOD SUC 40 MG/1 ML VIAL IV SCH ×3 (00:27→21:20)
[2022-08-27] MEDS: ALBUTEROL/IPRATROPIUM 3 ML NEB RESP TX SCH ×4 (02:25→19:08)
[2022-08-27] MEDS: DILTIAZEM 60 MG TABLET PO SCH ×3 (09:31→21:20)
[2022-08-27] MEDS: ALPRAZolam 0.25 MG TABLET PO SCH ×4 (09:31→21:20)
[2022-08-27] MEDS: ASPIRIN EC 81 MG TABLET PO SCH (09:32)
[2022-08-27] MEDS: SERTRALINE 25 MG TABLET PO SCH (09:32)
[2022-08-27] MEDS: FERROUS SULFATE 325 MG TABLET PO SCH ×2 (09:33→21:19)
[2022-08-27] MEDS: APIXABAN 2.5 MG TABLET PO SCH ×2 (09:33→21:19)
[2022-08-27] MEDS: PANTOPRAZOLE 40 MG TABLET PO SCH (09:33)
[2022-08-27] MEDS: CYPROHEPTADINE 4 MG TABLET PO SCH ×2 (09:33→21:19)
[2022-08-27] MEDS: DOCUSATE SODIUM 100 MG CAPSULE PO SCH (09:34)
[2022-08-27] MEDS: POTASSIUM CHLORIDE 20 MEQ TABLET PO SCH ×2 (09:34→21:20)
[2022-08-27] MEDS: MONTELUKAST 10 MG TABLET PO SCH (09:35)
[2022-08-27] MEDS: NYSTATIN 500,000 UNIT/5 ML UDCUP SWISH/SWAL SCH ×4 (09:35→21:19)
[2022-08-27] MEDS: INSULIN REGULAR 100 UNIT/ML SUBCUT SCH ×2 (09:37→16:25)
[2022-08-27] MEDS: FUROSEMIDE 20 MG/2 ML VIAL IV SCH (09:39)
[2022-08-27] MEDS: ZINC OXIDE PASTE 113 GM TUBE TOP SCH ×2 (09:39→21:20)
[2022-08-27] MEDS: LIDOCAINE 5% PATCH TRANSDERM SCH (09:40)
[2022-08-27] MEDS: DILTIAZEM INJ 100 MG in SODIUM CHLORIDE 0.9% 100 ML IV SCH (16:24)
[2022-08-27] MEDS: cefTRIAXone 1,000 MG in SODIUM CHLORIDE 0.9% 100 ML IV SCH (21:19)
[2022-08-28] MEDS: ALBUTEROL/IPRATROPIUM 3 ML NEB RESP TX SCH ×4 (00:53→18:55)
[2022-08-28] MEDS: DILTIAZEM INJ 100 MG in SODIUM CHLORIDE 0.9% 100 ML IV SCH (04:39)
[2022-08-28 05:05] LABS: Basophils # 0.1 10*3/uL (0.0-0.2); Basophils % 0.4 % (0.0-0.8); Hematocrit 34.2 VOL% (35.7-47.0); Hemoglobin 10.2 GM/DL (12.0-16.0); Immature Granulocytes % 5.5 %; Immature Granulocytes Absolute 1.33 #; Lymphocytes # 0.5 10*3/uL (1.4-4.0); Lymphocytes % 1.9 % (21.3-54.2); Mean Corpuscular HGB Conc 29.8 GM/DL (32-36); Mean Corpuscular Volume 88.1 FL (87-102); Mean Platelet Volume 8.9 FL (9.6-12.0); Monocytes # 1.2 10*3/uL (0.11-0.8); Monocytes % 4.7 % (1.7-12.7); Neutrophils % 87.5 % (38.7-73.9); Platelet Count 267 T/CUMM (130-400); Red Blood Count 3.88 MC/CUMM (3.8-5.5); Red Cell Distribution Width 17.6 % (9.3-17.3); White Blood Count 24.31 T/CUMM (4-12)
[2022-08-28] MEDS: POTASSIUM CHLORIDE 20 MEQ TABLET PO SCH ×2 (08:13→21:08)
[2022-08-28] MEDS: ALPRAZolam 0.25 MG TABLET PO SCH ×4 (08:13→21:08)
[2022-08-28] MEDS: APIXABAN 2.5 MG TABLET PO SCH ×2 (08:13→21:08)
[2022-08-28] MEDS: ASPIRIN EC 81 MG TABLET PO SCH (08:14)
[2022-08-28] MEDS: DOCUSATE SODIUM 100 MG CAPSULE PO SCH (08:14)
[2022-08-28] MEDS: DILTIAZEM 60 MG TABLET PO SCH ×3 (08:14→21:08)
[2022-08-28] MEDS: FERROUS SULFATE 325 MG TABLET PO SCH ×2 (08:14→21:08)
[2022-08-28] MEDS: PANTOPRAZOLE 40 MG TABLET PO SCH (08:14)
[2022-08-28] MEDS: CYPROHEPTADINE 4 MG TABLET PO SCH ×2 (08:14→21:08)
[2022-08-28] MEDS: SERTRALINE 25 MG TABLET PO SCH (08:14)
[2022-08-28] MEDS: MONTELUKAST 10 MG TABLET PO SCH (08:14)
[2022-08-28] MEDS: LIDOCAINE 5% PATCH TRANSDERM SCH (08:15)
[2022-08-28] MEDS: INSULIN REGULAR 100 UNIT/ML SUBCUT SCH ×2 (08:15→17:17)
[2022-08-28] MEDS: ZINC OXIDE PASTE 113 GM TUBE TOP SCH ×2 (08:17→21:08)
[2022-08-28] MEDS: FUROSEMIDE 20 MG/2 ML VIAL IV SCH (08:18)
[2022-08-28] MEDS: methylPREDNISolone SOD SUC 40 MG/1 ML VIAL IV SCH (08:19)
[2022-08-28] MEDS: cefTRIAXone 1,000 MG in SODIUM CHLORIDE 0.9% 100 ML IV SCH (21:08)
[2022-08-29] MEDS: ALBUTEROL/IPRATROPIUM 3 ML NEB RESP TX SCH ×4 (01:06→19:10)
[2022-08-29] MEDS: DILTIAZEM INJ 100 MG in SODIUM CHLORIDE 0.9% 100 ML IV SCH (04:15)
[2022-08-29] MEDS: INSULIN REGULAR 100 UNIT/ML SUBCUT SCH ×3 (07:56→20:35)
[2022-08-29] MEDS: ALPRAZolam 0.25 MG TABLET PO SCH ×4 (10:11→20:37)
[2022-08-29] MEDS: SERTRALINE 25 MG TABLET PO SCH (10:12)
[2022-08-29] MEDS: APIXABAN 2.5 MG TABLET PO SCH ×2 (10:12→20:37)
[2022-08-29] MEDS: ZINC OXIDE PASTE 113 GM TUBE TOP SCH ×2 (10:13→20:37)
[2022-08-29] MEDS: POTASSIUM CHLORIDE 20 MEQ TABLET PO SCH ×2 (10:39→20:37)
[2022-08-29] MEDS: ASPIRIN EC 81 MG TABLET PO SCH (10:39)
[2022-08-29] MEDS: CYPROHEPTADINE 4 MG TABLET PO SCH ×2 (10:39→20:37)
[2022-08-29] MEDS: DILTIAZEM 60 MG TABLET PO SCH ×3 (10:39→20:36)
[2022-08-29] MEDS: DOCUSATE SODIUM 100 MG CAPSULE PO SCH (10:39)
[2022-08-29] MEDS: FERROUS SULFATE 325 MG TABLET PO SCH ×3 (10:40→20:44)
[2022-08-29] MEDS: PANTOPRAZOLE 40 MG TABLET PO SCH (10:40)
[2022-08-29] MEDS: MONTELUKAST 10 MG TABLET PO SCH (10:40)
[2022-08-29] MEDS: LIDOCAINE 5% PATCH TRANSDERM SCH (10:40)
[2022-08-29] MEDS: predniSONE 20 MG TABLET PO SCH (10:40)
[2022-08-29] MEDS: FUROSEMIDE 20 MG/2 ML VIAL IV SCH (12:36)
[2022-08-29] MEDS: cefTRIAXone 1,000 MG in SODIUM CHLORIDE 0.9% 100 ML IV SCH (20:32)
[2022-08-30] MEDS: ALBUTEROL/IPRATROPIUM 3 ML NEB RESP TX SCH ×4 (00:10→19:08)
[2022-08-30 04:47] LABS: Basophils # 0.1 10*3/uL (0.0-0.2); Basophils % 0.6 % (0.0-0.8); Eosinophils # 0.2 10*3/uL (0.0-0.87); Eosinophils % 0.9 % (0.00-10.9); Hematocrit 29.9 VOL% (35.7-47.0); Hemoglobin 8.9 GM/DL (12.0-16.0); Immature Granulocytes % 5.7 %; Lymphocytes # 0.9 10*3/uL (1.4-4.0); Mean Corpuscular HGB Conc 29.8 GM/DL (32-36); Mean Corpuscular Volume 90.3 FL (87-102); Mean Platelet Volume 9.4 FL (9.6-12.0); Monocytes # 1.2 10*3/uL (0.11-0.8); Monocytes % 6.6 % (1.7-12.7); Neutrophils % 81.2 % (38.7-73.9); Platelet Count 211 T/CUMM (130-400); Red Blood Count 3.31 MC/CUMM (3.8-5.5); Red Cell Distribution Width 17.8 % (9.3-17.3); White Blood Count 17.46 T/CUMM (4-12)
[2022-08-30 05:08] LABS: Calcium 8.2 MG/DL (8.5-10.1); Osmolality,Calculated 275.7 MOS/KG (273-304); Potassium 4.8 MMOL/L (3.5-5.1)
[2022-08-30 05:18] LABS: Band Neutrophils 1 % (0-10); Lymphocytes 9 % (20-55); Microcytosis Slight; Myelocytes 1 %; Nucleated Red Blood Cells 1 /100 WBC (0-5); Total Cells Counted 100
[2022-08-30 05:19] LABS: Hypochromia Slight; Ovalocytes Few
[2022-08-30] MEDS: DILTIAZEM 60 MG TABLET PO SCH ×3 (08:09→21:55)
[2022-08-30] MEDS: SERTRALINE 25 MG TABLET PO SCH (08:09)
[2022-08-30] MEDS: POTASSIUM CHLORIDE 20 MEQ TABLET PO SCH ×2 (08:09→21:54)
[2022-08-30] MEDS: MONTELUKAST 10 MG TABLET PO SCH (08:10)
[2022-08-30] MEDS: FUROSEMIDE 20 MG/2 ML VIAL IV SCH (08:10)
[2022-08-30] MEDS: PANTOPRAZOLE 40 MG TABLET PO SCH (08:10)
[2022-08-30] MEDS: APIXABAN 2.5 MG TABLET PO SCH ×2 (08:10→21:54)
[2022-08-30] MEDS: ALPRAZolam 0.25 MG TABLET PO SCH ×4 (08:10→21:54)
[2022-08-30] MEDS: CYPROHEPTADINE 4 MG TABLET PO SCH ×2 (08:10→21:55)
[2022-08-30] MEDS: FERROUS SULFATE 325 MG TABLET PO SCH ×2 (08:10→21:55)
[2022-08-30] MEDS: ASPIRIN EC 81 MG TABLET PO SCH (08:10)
[2022-08-30] MEDS: DOCUSATE SODIUM 100 MG CAPSULE PO SCH (08:10)
[2022-08-30] MEDS: predniSONE 20 MG TABLET PO SCH (08:10)
[2022-08-30] MEDS: INSULIN REGULAR 100 UNIT/ML SUBCUT SCH ×4 (08:12→21:56)
[2022-08-30] MEDS: LIDOCAINE 5% PATCH TRANSDERM SCH (08:15)
[2022-08-30] MEDS: ZINC OXIDE PASTE 113 GM TUBE TOP SCH ×2 (08:15→21:54)
[2022-08-30] MEDS: cefTRIAXone 1,000 MG in SODIUM CHLORIDE 0.9% 100 ML IV SCH (21:56)
[2022-08-31] MEDS: ALBUTEROL/IPRATROPIUM 3 ML NEB RESP TX SCH ×3 (00:05→14:00)
[2022-08-31] MEDS: INSULIN REGULAR 100 UNIT/ML SUBCUT SCH ×2 (08:28→12:24)
[2022-08-31] MEDS: FUROSEMIDE 20 MG/2 ML VIAL IV SCH (09:29)
[2022-08-31] MEDS: CYPROHEPTADINE 4 MG TABLET PO SCH (09:30)
[2022-08-31] MEDS: DOCUSATE SODIUM 100 MG CAPSULE PO SCH (09:30)
[2022-08-31] MEDS: predniSONE 20 MG TABLET PO SCH (09:30)
[2022-08-31] MEDS: ALPRAZolam 0.25 MG TABLET PO SCH ×2 (09:30→15:31)
[2022-08-31] MEDS: DILTIAZEM 60 MG TABLET PO SCH ×2 (09:30→15:31)
[2022-08-31] MEDS: PANTOPRAZOLE 40 MG TABLET PO SCH (09:30)
[2022-08-31] MEDS: SERTRALINE 25 MG TABLET PO SCH (09:30)
[2022-08-31] MEDS: ASPIRIN EC 81 MG TABLET PO SCH (09:30)
[2022-08-31] MEDS: POTASSIUM CHLORIDE 20 MEQ TABLET PO SCH (09:30)
[2022-08-31] MEDS: ZINC OXIDE PASTE 113 GM TUBE TOP SCH (09:30)
[2022-08-31] MEDS: APIXABAN 2.5 MG TABLET PO SCH (09:30)
[2022-08-31] MEDS: MONTELUKAST 10 MG TABLET PO SCH (09:30)
[2022-08-31] MEDS: FERROUS SULFATE 325 MG TABLET PO SCH (09:31)
[2022-08-31] MEDS: LIDOCAINE 5% PATCH TRANSDERM SCH (09:31)
[2022-08-31 13:40] VITALS: BP 95/41
[2022-09-01] MEDS ORDERED: MEPERIDINE 50 MG/1 ML VIAL IM ONE (07:00)
[2022-09-01] MEDS ORDERED: PROMETHAZINE 25 MG/1 ML VIAL IM ONE (07:00)
[2022-09-01] MEDS ORDERED: MIDAZOLAM 10 MG/2 ML VIAL IV ONE (07:30)
[2022-09-01] MEDS ORDERED: LIDOCAINE 2% 20 ML VIAL RESP TX ONE (07:30)
[2022-09-01] MEDS ORDERED: LIDOCAINE 2% VISCOUS 100 ML BOTTLE SWISH/SPIT ONE (07:30)
[2022-09-01] MEDS ORDERED: LIDOCAINE 1% 20 ML VIAL MISC INJ ONE (07:30)
== END 2022-08-31 16:17 | DRG 871 ==
LOC: N.ED 00:46 → N.EDINP 03:35 → SUATTDRO 03:35 → N.ICU 06:04 → N.TELEN 08-15 12:14
PROVIDERS: ADMIT Internal Medicine; ATTEND Internal Medicine